=== PATIENT | female | born 1975 | race Caucasian/White ===

== ENCOUNTER 2021-05-12 16:53 | Emergency (ER) | payer OTHER, SELFPAY ==
--- NOTE | 2021-05-12 17:22 | ECG_ITS ---
Test Reason : palpitatons Blood Pressure : / mmHG Vent. Rate : 079 BPM Atrial Rate : 079 BPM P-R Int : 126 ms QRS Dur : 082 ms QT Int : 358 ms P-R-T Axes : 071 068 052 degrees QTc Int : 410 ms Normal sinus rhythm Normal ECG When compared with ECG of 18-JAN-2015 13:02, No significant change was found Referred By: Cinda Taylor Electronically Signed By:JAKE ALVAREZ
--- NOTE | 2021-05-12 17:23 | ED_ITS ---
HPI - Arrhythmia/Palpitations General Chief Complaint: General Medical Stated Complaint: needs a med refill Time Seen by Provider: 05/12/21 17:05 Source: patient Mode of arrival: ambulatory History of Present Illness HPI narrative: 46yo F with PMHx PVCs, tachycardia, presenting to the ED c/o being out of her Metoprolol 25mg PO daily x7 days after moving here from [place]. Reports feeling PVC's and palpitations this AM. Denies taking or missing any other medications. Denies CP, SOB, weakness, numbness/tingling, N/V MD complaint: palpitations and irregular heart beat Related Data Previous Rx's Medication Instructions Recorded metoprolol tartrate 25 mg tablet 25 mg PO DAILY #30 tab 05/12/21 Allergies Allergy/AdvReac Type Severity Reaction Status Date / Time No Known Allergies Allergy Unverified 11/14/19 18:59 Review of Systems Review of Systems: Constitutional: No Fever, No Chills, No Fatigue, No Malaise ENT/Mouth: No Ear Pain, No Nasal Congestion, No sore throat, No Rhinorrhea Eyes: No Eye Pain, No Swelling, No Redness, No Discharge Cardiovascular: No Chest Pain, No SOB, No Edema, + Palpitations Respiratory: No Cough, No Sputum, No Dyspnea Gastrointestinal: No Nausea, No Vomiting, No Diarrhea, No Constipation, No Abdominal pain Musculoskeletal: No joint pain, No Myalgias, No Joint Swelling Skin: No Skin Lesions, No rash Neuro: No Weakness, No Numbness, No Paresthesias, No Loss of Consciousness, No Dizziness, No Headache Yes all other systems are reviewed and are negative [facility] Past Medical History Attestation statement: The following information was validated with the patient. Social History Social History Advance Directives: No Advance Directives Information Provided: No Physical Exam Vital Signs: Vital Signs: Last Vital Signs Temp 98.1 F 05/12/21 18:05 Pulse 99 05/12/21 18:05 Resp 18 05/12/21 18:05 BP 142/79 H 05/12/21 18:05 Pulse Ox 100 05/12/21 18:05 BMI result Body Mass Index 28.5 Const: General: cooperative and healthy appearing Orientation/consciousness: patient oriented x3 Limitations: no limitations HENMT: Head: Yes normal to inspection Ears: hearing grossly normal bilaterally General nose exam: Normal external nose present Face and sinus: Yes normal facial exam Eyes: General: appearance normal, both eyes and all related structures EOM: EOMs intact bilaterally Neck: Neck: Yes normal visual inspection and Yes no meningeal signs Resp: Effort & Inspection: normal respiratory effort and no respiratory distress Auscultation: clear to auscultation bilaterally, no crackles, no rales, no rhonchi and no wheezes Cardio: Rate: regular rate Heart sounds: S1 normal heart sound present and S2 normal heart sound present GI: Inspection: Yes normal to inspection Skin: Rashes: no rashes Wounds: no wounds Neuro: General: patient oriented x3 and no meningeal signs Gait exam (Neuro): Normal gait present Extrem: General: Yes normal to inspection, Yes no pedal edema and Yes normal gait MDM - Arrhythmia/Palpitations MDM Narrative Medical decision making narrative: 46yo F with PMHx PVCs, tachycardia, presenting to the ED c/o being out of her Metoprolol 25mg PO daily x7 days after moving here from [place]. On exam VSS, NAD, well appearing, Lungs CTA. R/o arrhythmia. Low concern for ACS/PE EKG showing: NSR, no PVCs, rate of 79. OH interval 126. QRS 82. QTC 410 Differential Diagnosis Differential diagnosis: Likely palpitations Medical Records Attestation: I reviewed the patient's medical records. Lab Data Attestation: I reviewed the patient's lab results. Discharge Plan Discharge Clinical Impression: Medication refill Patient Disposition: Home, Self-Care Instructions: Medicine Refill (ED) Additional Instructions: take your medications as prescribed. Establish care with a primary care doctor. If you develop chest pain, palpitations, lightheadedness / dizziness or shortness of breath please return to the emergency department Prescriptions: New metoprolol tartrate 25 mg tablet 25 mg PO DAILY Qty: 30 0RF Referrals: Deon Crook MD, DO [Physician] - 2 days
[2021-05-12 18:05] VITALS: BP 142/79; PULSE 99; RESP 18; TEMP 36.7; O2SAT 100; BMI 28.5
[2021-05-12] MEDS: Metoprolol Tartrate 25 MG TABLET PO (18:49)
== END 2021-05-12 19:17 | disposition home or self-care (01) ==
PROVIDERS: Emergency Provider Emergency Medicine
DX: R00.0 Tachycardia, unspecified (principal); Z76.0 Encounter for issue of repeat prescription; Z79.899 Other long term (current) drug therapy
CPT/HCPCS: 93005; 99283

== ENCOUNTER 2021-08-07 07:48 | Emergency (ER) | payer OTHER, SELFPAY ==
--- NOTE | ~2021-08-07 | CT_ITS ---
EXAMINATION: CT ABDOMEN AND PELVIS WITHOUT CONTRAST CLINICAL INFORMATION: Right flank pain. COMPARISON: None TECHNIQUE: Multidetector volumetric imaging was performed from the superior aspect of the liver through the pubic symphysis. Sagittal and coronal reformatted images were obtained on the technologist's workstation. Lack of intravenous and oral contrast limits visceral evaluation. This CT examination was performed using dose optimization techniques as appropriate, variously including the following: *Automated exposure control *Adjustment of mA and/or kV according to patient size (this includes techniques or standardized protocols for targeted exams where dose is matched to indication/reason for exam; i.e. extremities or head) *Use of iterative reconstruction technique DLP: 630 mGy-cm FINDINGS: LUNG BASES: The visualized lung bases are unremarkable. LIVER, GALLBLADDER, AND BILIARY TREE: Unremarkable. PANCREAS: Unremarkable. SPLEEN: Unremarkable. ADRENAL GLANDS: Unremarkable. KIDNEYS AND URETERS: The kidneys are normal in size, shape, and attenuation. No hydronephrosis, hydroureter, or calculi seen. No perinephric stranding. BLADDER: Unremarkable. GASTROINTESTINAL TRACT: The stomach and small bowel unremarkable. The appendix was not confidently identified. No significant right lower quadrant/pericecal abnormality. The colon and rectum are unremarkable. ABDOMINAL WALL: No significant hernia is appreciated. LYMPH NODES: No lymphadenopathy. VASCULAR: Unremarkable. PELVIC VISCERA: Anteverted/anteflexed uterus mild prominence, but no overt focal abnormality. No adnexal abnormality. OSSEOUS STRUCTURES: Unremarkable. CT/CT abdomen pelvis wo con IMPRESSION: 1. No acute intra-abdominal/pelvic abnormality to explain the patient's pain. 2. Incidental mild prominence of the uterus without focal abnormality. If the patient is experiencing any abnormal bleeding or pelvic pain, transvaginal pelvic ultrasound is recommended. Fleischner guidelines were followed.
[2021-08-07 07:58] VITALS: BP 138/73; PULSE 77; RESP 18; TEMP 36.7; O2SAT 100; BMI 28.1
--- NOTE | 2021-08-07 08:20 | ED_ITS ---
HPI - Abdominal Pain General Chief Complaint: Back Pain/Injury Stated Complaint: back pain Time Seen by Provider: 08/07/21 08:11 Source: patient Mode of arrival: ambulatory Limitations: no limitations History of Present Illness HPI narrative: 46-year-old female came in for evaluation of right side abdominal/right flank pain. Pain started since last night, pain was described as dull aching pain mainly in the right side of the abdomen radiating to the right flank area, pain is intermittent started since last night, described dysuria and urinary frequency, no vaginal bleeding or discharge, pain is not food or drink related. Decline nausea, vomiting, or diarrhea, sexually active without risk of STDs. No fever, no chills. History of appendectomy and tubal ligation. Related Data Previous Rx's Medication Instructions Recorded metoprolol tartrate 25 mg tablet 25 mg PO DAILY #30 tabs 05/12/21 cyclobenzaprine 10 mg tablet 10 mg PO TID PRN muscle spasm #7 08/07/21 tabs Allergies Allergy/AdvReac Type Severity Reaction Status Date / Time No Known Allergies Allergy Unverified 11/14/19 18:59 Review of Systems Review of Systems All other systems are reviewed and are negative Constitutional: Reports as per HPI and Reports no additional constitutional complaints Eyes: Reports as per HPI and Reports no additional eye complaints Reports system reviewed and no additional complaints, except as documented Cardiovascular: Reports as per HPI and Reports no additional cardiovascular complaints Respiratory: Reports as per HPI and Reports no additional respiratory complaints Gastrointestinal: Reports as per HPI and Reports no additional gastrointestinal complaints Genitourinary: Reports no additional female genitourinary complaints Musculoskeletal: Reports no additional musculoskeletal complaints Skin/Breast: Reports system reviewed and no additional complaints, except as docu Psychiatric: Reports no additional psychiatric complaints Endocrine: Reports no additional endocrine complaints Hematologic/Lymphatic: Reports no additional hematologic/lymphatic complaints Allergic/Immunologic: Reports no additional allergic/immunologic complaints Reports system reviewed and no additional complaints, except as documented and Reports Abnormal speech present [facility] Social History Social History Advance Directives: No Advance Directives Information Provided: No Patient : No Physical Exam ED Vital Signs: Vital Signs - 24 hr 08/07/21 07:58 08/07/21 10:25 Temperature 98.0 F Pulse Rate 77 70 Respiratory Rate 18 16 Blood Pressure 138/73 138/65 Pulse Oximetry 100 100 Oxygen Delivery Method Room Air Room Air BMI result Body Mass Index 28.1 Vital signs have been reviewed as appeared to be correct. Blood pressure normal. Heart rate normal. Respiration rate normal. Temperature normal. Oxygen saturation normal. Appearance: Alert. Oriented X3. No acute distress. Head: Normal external exam. Normocephalic. Atraumatic. No Gracia signs noted. No raccoon eyes noted Eyes: PERRLA. EOMI. Conjunctiva and sclera normal. Eyelids normal. ENT: TM's Normal. Pharynx normal. Uvula midline. Moist mucous membranes. No trismus noted. No drooling noted. No muffled voice noted. Neck: Normal inspection. Neck supple. FROM. No adenopathy. Thyroid Normal. No meningeal signs. No neck mass noted. CVS: Normal heart rate and rhythm. Heart sound normal. No murmurs noted. Pulses normal throughout. Respiratory: No respiratory distress. Painless inspiration. Breath sounds normal. No wheezes/rales/rhonchi noted. Chest nontender. No accessory muscle usage noted or decreased air movement noted. Abdomen: Soft and nontender. Bowel sounds normal in all 4 quadrants. No distention noted. No organomegaly noted. No visible injury noted. Back: No CVA tenderness. Full range of motion noted. Skin: Skin warm and dry. Normal skin color. Normal skin turgor. No rashes/lesions/lacerations noted. Extremities: No lower extremity edema. Extremities exhibit normal range of motion. Extremities nontender. Neuro: Oriented X 3. Cranial nerve exam: II-XII are grossly intact No motor deficit. No sensory deficit. Reflexes normal. Course Course Course Narrative: Assessment and plan. 46 years old female came in with right flank abdominal pain, incidentally found to have mild lipase elevation patient declined drinking alcohol, normal LFTs CT abdomen pelvis showed normal gallbladder, liver and pancreas. Will instruct the patient to eat clear diet with drinking plenty of fluid and try to avoid greasy food. 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 MDM - Abdominal Pain Lab Data Attestation: I reviewed the patient's lab results. Result diagrams: 08/07/21 08:24 08/07/21 08:24 Labs: Lab Results 08/07/21 08/07/21 08/07/21 Range/Units 08:24 08:24 08:25 WBC 8.2 (4.8-10.8) X10*3/uL RBC 4.19 L (4.20-5.50) X10*6/uL Hgb 12.5 (12.0-16.0) g/dl Hct 38.2 (37.0-47.0) % MCV 91.2 (80.0-98.0) fL MCH 29.8 (27.0-33.0) pg MCHC 32.7 (31.0-35.0) g/dl RDW 14.1 (11.0-16.0) % Plt Count 193 (160-400) X10*3/uL MPV 11.6 (9.4-12.3) fL Immature Gran % (Auto) 0.2 (0.0-0.4) % Neut % (Auto) 76.6 H (45-73) % Lymph % (Auto) 14.5 L (20-40) % [place] % (Auto) 6.3 (2-11) % Eos % (Auto) 2.0 (0-4) % Baso % (Auto) 0.4 (0-2) % Lymph # (Auto) 1.2 (1.2-4.9) X10*3/uL [place] # (Auto) 0.5 (0.1-1.2) X10*3/uL Eos # (Auto) 0.2 (0.0-0.4) X10*3/uL Baso # (Auto) 0.0 (0.0-0.2) X10*3/uL Abs Immat Gran (auto) 0.02 (0.00-0.03) X10*3/uL Absolute Neuts (auto) 6.3 (2.0-8.3) x10*3/uL Absolute Nucleated RBC 0.000 (0.0-0.012) X10*3/uL Nucleated RBC % (auto) 0.0 (0.0-0.2) /100WBC Sodium 138 (135-145) mmol/L Potassium 3.9 (3.3-5.1) mmol/L Chloride 104 (96-108) mmol/L Carbon Dioxide 26 (22-29) mmol/L Anion Gap 12 (12-20) BUN 16 (9-16) mg/dL Creatinine 0.81 (0.5-1.4) mg/dL Estim Creat Clear Calc 100.6 Estimated GFR > 60 Random Glucose 97 (60-115) mg/dL Calcium 9.1 (8.4-10.2) mg/dL Total Bilirubin 0.4 (0.0-1.0) mg/dL Direct Bilirubin 0.2 (0.0-0.5) mg/dL AST 18 (5-31) U/L ALT 12 (0-31) U/L Alkaline Phosphatase 54 (39-117) U/L Total Protein 6.8 (6.5-8.0) g/dL Albumin 4.2 (3.5-5.0) g/dL Lipase 131 H (8-78) U/L Urine Color YELLOW Urine Appearance CLEAR Urine pH 6.0 (5.0-8.0) Ur Specific [place] 1.025 (1.005-1.025) Urine Protein NEG (NEG-TRACE) MG/DL Urine Glucose (UA) NEG (NEG) MG/DL Urine Ketones NEG (NEG) MG/DL Urine Blood NEG (NEG) Urine Nitrite NEG (NEG) Ur Leukocyte Esterase NEG (NEG) Urine Test (NEGATIVE) 08/07/21 Range/Units 08:25 WBC (4.8-10.8) X10*3/uL RBC (4.20-5.50) X10*6/uL Hgb (12.0-16.0) g/dl Hct (37.0-47.0) % MCV (80.0-98.0) fL MCH (27.0-33.0) pg MCHC (31.0-35.0) g/dl RDW (11.0-16.0) % Plt Count (160-400) X10*3/uL MPV (9.4-12.3) fL Immature Gran % (Auto) (0.0-0.4) % Neut % (Auto) (45-73) % Lymph % (Auto) (20-40) % [place] % (Auto) (2-11) % Eos % (Auto) (0-4) % Baso % (Auto) (0-2) % Lymph # (Auto) (1.2-4.9) X10*3/uL [place] # (Auto) (0.1-1.2) X10*3/uL Eos # (Auto) (0.0-0.4) X10*3/uL Baso # (Auto) (0.0-0.2) X10*3/uL Abs Immat Gran (auto) (0.00-0.03) X10*3/uL Absolute Neuts (auto) (2.0-8.3) x10*3/uL Absolute Nucleated RBC (0.0-0.012) X10*3/uL Nucleated RBC % (auto) (0.0-0.2) /100WBC Sodium (135-145) mmol/L Potassium (3.3-5.1) mmol/L Chloride (96-108) mmol/L Carbon Dioxide (22-29) mmol/L Anion Gap (12-20) BUN (9-16) mg/dL Creatinine (0.5-1.4) mg/dL Estim Creat Clear Calc Estimated GFR Random Glucose (60-115) mg/dL Calcium (8.4-10.2) mg/dL Total Bilirubin (0.0-1.0) mg/dL Direct Bilirubin (0.0-0.5) mg/dL AST (5-31) U/L ALT (0-31) U/L Alkaline Phosphatase (39-117) U/L Total Protein (6.5-8.0) g/dL Albumin (3.5-5.0) g/dL Lipase (8-78) U/L Urine Color Urine Appearance Urine pH (5.0-8.0) Ur Specific [place] (1.005-1.025) Urine Protein (NEG-TRACE) MG/DL Urine Glucose (UA) (NEG) MG/DL Urine Ketones (NEG) MG/DL Urine Blood (NEG) Urine Nitrite (NEG) Ur Leukocyte Esterase (NEG) Urine Test NEGATIVE (NEGATIVE) Imaging Data CT scan - abdomen: Attestation: I personally reviewed and interpreted this imaging study as follows: Radiologist's impression: 1. No acute intra-abdominal/pelvic abnormality to explain the patient's pain. 2. Incidental mild prominence of the uterus without focal abnormality. If the patient is experiencing any abnormal bleeding or pelvic pain, transvaginal pelvic ultrasound is recommended. ? Discharge Plan Discharge Clinical Impression: Right flank pain, Muscle strain, Pancreatitis Patient Disposition: Home, Self-Care Instructions: Pancreatitis (ED), Muscle Strain (ED) Prescriptions: New cyclobenzaprine 10 mg tablet 10 mg PO TID PRN (Reason: muscle spasm) Qty: 7 0RF No Action metoprolol tartrate 25 mg tablet 25 mg PO DAILY Qty: 30 0RF Referrals: Lukasz Chapin MD [Primary Care Provider] -
[2021-08-07] MEDS: 0.9 % Sodium Chloride 1,000 ML 999 ML IV (08:27)
[2021-08-07 08:33] LABS: MANUAL DIFF FLAG NO
[2021-08-07 08:36] LABS: Appearance Urine CLEAR; Color Urine YELLOW; Glucose Urine UA NEG (NEG); Leukocyte Esterase Urine NEG (NEG); Nitrite Urine NEG (NEG); Specific Gravity - Urine 1.025 (1.005-1.025); Urine Blood NEG (NEG); Urine Ketones NEG (NEG); Urine Protein NEG (NEG-TRACE)
[2021-08-07 08:37] LABS: Basophils Percent Auto 0.4 % (0-2); Eosinophils Absolute Auto 0.2 X10*3/uL (0.0-0.4); Hematocrit 38.2 % (37.0-47.0); Hemoglobin 12.5 g/dl (12.0-16.0); Imm Gran Abs Auto 0.02 X10*3/uL (0.00-0.03); Imm Gran Pct Auto 0.2 % (0.0-0.4); Lymphocytes Absolute Auto 1.2 X10*3/uL (1.2-4.9); Lymphocytes Percent Auto 14.5 % (20-40); Mean Corpuscular HGB Conc 32.7 g/dl (31.0-35.0); Mean Corpuscular Hemoglobin 29.8 pg (27.0-33.0); Mean Corpuscular Volume 91.2 fL (80.0-98.0); Mean Platelet Volume 11.6 fL (9.4-12.3); Monocytes Absolute Auto 0.5 X10*3/uL (0.1-1.2); Monocytes Percent Auto 6.3 % (2-11); Neutrophils Absolute Auto 6.3 x10*3/uL (2.0-8.3); Neutrophils Percent Auto 76.6 % (45-73); Platelet Count 193 X10*3/uL (160-400); Red Blood Count 4.19 X10*6/uL (4.20-5.50); Red Cell Distribution Width 14.1 % (11.0-16.0); White Blood Count 8.2 X10*3/uL (4.8-10.8)
[2021-08-07 08:39] LABS: UPreg QC Valid YES; Urine Pregnancy NEGATIVE (NEGATIVE)
[2021-08-07 08:48] LABS: Alanine Aminotransferase 12 U/L (0-31); Albumin Level 4.2 g/dL (3.5-5.0); Alkaline Phosphatase 54 U/L (39-117); Anion Gap 12 (12-20); Aspartate Amino Transferase 18 U/L (5-31); Bilirubin Direct 0.2 mg/dL (0.0-0.5); Bilirubin Total 0.4 mg/dL (0.0-1.0); Blood Urea Nitrogen 16 mg/dL (9-16); Calcium 9.1 mg/dL (8.4-10.2); Carbon Dioxide 26 mmol/L (22-29); Chloride 104 mmol/L (96-108); Creatinine Clr Calc Pharmacy 100.6; Estimated Glomerular Filt Rate > 60; Glucose Random 97 mg/dL (60-115); Lipase 131 U/L (8-78); Potassium 3.9 mmol/L (3.3-5.1); Sodium 138 mmol/L (135-145); Total Protein 6.8 g/dL (6.5-8.0)
[2021-08-07 10:25] VITALS: BP 138/65; PULSE 70; RESP 16; O2SAT 100
== END 2021-08-07 11:48 | disposition home or self-care (01) ==
PROVIDERS: Emergency Provider Emergency Medicine; PCP Family Medicine
DX: K85.90 Acute pancreatitis without necrosis or infection, unspecified (principal); T14.8XXA Other injury of unspecified body region, initial encounter; Z90.49 Acquired absence of other specified parts of digestive tract; X50.9XXA Other and unspecified overexertion or strenuous movements or postures, initial encounter; Y93.9 Activity, unspecified; Y92.89 Other specified places as the place of occurrence of the external cause; Y99.0 Civilian activity done for income or pay
CPT/HCPCS: 36415; 74176; 80048; 80076; 81003; 81025; 83690; 85025; 96360; 99284

== ENCOUNTER 2023-03-24 16:26 | Emergency (ER) | payer OTHER, SELFPAY ==
--- NOTE | 2023-03-24 16:32 | ED.FEMALEGU ---
HPI - Female Genitourinary General Chief complaint: General Medical Stated complaint: possible UTI, feels like she has high BP Time Seen by Provider: 03/24/23 16:55 Source: patient, RN notes reviewed and old records reviewed Mode of arrival: ambulatory History of Present Illness HPI Narrative: 48-year-old female with a past medical history of hypertension presenting to the ED complaining of urinary frequency, suprapubic discomfort, urinary odor x yesterday. Also reports ran out of her Metoprolol yesterday, and PCP appointment is not until May. Denies headache, chest pain, lightheadedness/dizziness, dysuria, vaginal bleeding/discharge at present Related Data Previous Rx's Medication Instructions Recorded metoprolol tartrate 25 mg tablet 25 mg PO DAILY #30 tabs 05/12/21 cyclobenzaprine 10 mg tablet 10 mg PO TID PRN muscle spasm #7 08/07/21 tabs metoprolol succinate 25 mg 25 mg PO DAILY #30 tabs 03/24/23 tablet,extended release 24 hr phenazopyridine 200 mg tablet 200 mg PO TID PRN pain 6 doses #6 03/24/23 (Pyridium) tabs Allergies Allergy/AdvReac Type Severity Reaction Status Date / Time No Known Allergies Allergy Unverified 11/14/19 18:59 Review of Systems Review of Systems: Constitutional: No Fever, No Chills ENT/Mouth: No Ear Pain, No Nasal Congestion, No Sinus Pain, No sore throat, No Rhinorrhea, No Swallowing Difficulty Cardiovascular: No Chest Pain, No SOB Respiratory: No Cough, No Sputum, No Wheezing Gastrointestinal: No Nausea, No Vomiting, No Diarrhea, No Constipation, + Abdominal pain Genitourinary: +odorous urine, No Dysuria,+ Urinary Frequency, No Hematuria, No Urinary Incontinence/retention, +Urgency, No Flank Pain Musculoskeletal: No joint pain, No Myalgias, No Joint Swelling Skin: No Skin Lesions, No rash Neuro: No Weakness, No Numbness, No Paresthesias Yes all other systems are reviewed and are negative Constitutional: Constitutional: Reports as per HPI Neurologic: Denies Abnormal speech present [facility] Past Medical History Attestation statement: The following information was validated with the patient. Source: old records reviewed Social History Social History Advance Directives: No Advance Directives Information Provided: No Physical Exam Vital Signs: Vital Signs: Last Vital Signs Temp 98 F 03/24/23 16:41 Pulse 92 03/24/23 16:41 Resp 16 03/24/23 16:41 BP 151/79 H 03/24/23 16:41 Pulse Ox 98 03/24/23 16:41 BMI result Body Mass Index 29.3 Const: General: cooperative, healthy appearing and no acute distress Orientation/consciousness: patient oriented x3 Limitations: no limitations HEENT: Head: Yes normal to inspection and Yes atraumatic Ears: hearing grossly normal bilaterally General nose exam: Normal external nose present Face and sinus: Yes normal facial exam Eyes: General: appearance normal, both eyes and all related structures EOM: EOMs intact bilaterally Neck: Neck: Yes normal visual inspection and Yes no meningeal signs Resp: Effort & Inspection: normal respiratory effort and no respiratory distress Cardio: Rate: regular rate GI: Inspection: Yes normal to inspection Palpation (GI): Soft to palpation and nontender : General: Yes no CVA tenderness Back/Spine/Pelvis: Back: no CVA tenderness Skin: Rashes: no rashes Wounds: no wounds Neuro: General: patient oriented x3, gait normal, tone normal, moves all extremities and no meningeal signs Cranial nerves: Yes CN's II-XII intact bilaterally Cognition (Neuro): normal cognition Speech: No Abnormal speech present Gait exam (Neuro): Normal gait present Extrem: General: Yes normal to inspection Course Course Course Narrative: This is an RME: Additional HPI, ROS, PE not included below will be deferred to primary provider. Patient is a 48 year old female who presents for concerns for urinary infection, suprapubic pain, urinary frequency, and foul smelling urine. Also she states she reports that she ran out of her metoprolol yesterday, she does not have an appt with PCP here until May, she was previously purchasing it in [place], feels like her blood pressure is high today. Plan: U/A, hcg -UA not infected. negative Results discussed with patient including worrisome signs and symptoms and strict return precautions, and when to return to the emergency department. They verbalized understanding and feel safe for discharge at this time. Medical Decision Making Medical Decision Making MDM Narrative: 48-year-old female with a past medical history of hypertension presenting to the ED complaining of urinary frequency, suprapubic discomfort, urinary odor x yesterday. Also reports ran out of her Metoprolol yesterday. Mildly hypertensive, NAD, nontoxic appearing, abdomen soft/nontender, no CVAT. Concern for UTI. Low suspicion for renal stones/pyelo, ovarian torsion, STI, TOA. Low suspicion for hypertensive urgency/emergency Plan: UA, Please refer to course for remaining clinical decision making, interpretation of labs/imaging results, and discussions with consultants and/or family members. Differential Diagnosis Differential Diagnoses: The differential diagnosis associated with the presentation includes As above Lab Data MDM Lab Attestation statement: I reviewed the patient's lab results. Labs: Lab Results 03/24/23 Range/Units 16:47 Urine Color Yellow Urine Appearance Clear Urine pH 5.5 (5.0-9.0) Ur Specific [place] 1.020 (1.005-1.025) Urine Protein Negative (Neg-Trace) mg/dL Urine Glucose (UA) Negative (Negative) mg/dL Urine Ketones Negative (Negative) mg/dL Urine Blood Negative (Negative) Urine Nitrite Negative (Negative) Ur Leukocyte Esterase Trace H (Negative) Urine RBC 0-2 (0-2) /HPF Urine WBC 0-5 (0-5) /HPF Ur Squamous Epith Cells 3-5 (0-2) /HPF Urine Bacteria 4+ (None Seen) Hyaline Casts 0-2 (0-2) /LPF Urine Test NEGATIVE (NEGATIVE) External Record Review External record reviewed: Inpatient record, Office record, Outpatient record, Prior outpatient labs, Prior outpatient radiology, Primary care record and Outside ED record Tests considered The following testing was considered but not selected: As above Prescription Management I considered prescription management with: Pain Medication and Antibiotic Chronic Conditions Patient?s care impacted by: Hypertension Discharge Plan Discharge Clinical Impression: Foul smelling urine, HTN (hypertension) Patient Disposition: Home, Self-Care Instructions: Hypertension (ED) Additional Instructions: Pyridium will help with urinary discomfort. This will turn your urine orange, this is normal Please continue to take your prescribed antihypertensive medication If her symptoms persist or worsen, pain becomes unbearable, you develop vaginal bleeding or discharge, headache, chest pain or shortness of breath return to the ED Please follow-up with your doctor Prescriptions: New metoprolol succinate 25 mg tablet extended release 24 hr 25 mg PO DAILY Qty: 30 0RF phenazopyridine [Pyridium] 200 mg tablet 200 mg PO TID PRN (Reason: pain) Qty: 6 0RF No Action cyclobenzaprine 10 mg tablet 10 mg PO TID PRN (Reason: muscle spasm) Qty: 7 0RF metoprolol tartrate 25 mg tablet 25 mg PO DAILY Qty: 30 0RF Referrals: Lukasz Chapin MD [Primary Care Provider] - 3 days Interventions: ED Discharge Assessment Last Done: 03/24/23 18:26 Discharge Date/Time: 03/24/23 18:27
[2023-03-24 16:41] VITALS: BP 151/79; PULSE 92; RESP 16; TEMP 36.6; O2SAT 98; BMI 29.3
[2023-03-24 16:56] LABS: Appearance Urine Clear; Color Urine Yellow; Glucose Urine UA Negative (Negative); Leukocyte Esterase Urine Trace (Negative); Nitrite Urine Negative (Negative); PH 5.5 (5.0-9.0); UMIC TRIGGER UACC YES; Urine Blood Negative (Negative); Urine Ketones Negative (Negative); Urine Protein Negative (Neg-Trace)
[2023-03-24 17:02] LABS: UPreg QC Valid YES; Urine Pregnancy NEGATIVE (NEGATIVE)
[2023-03-24 17:03] LABS: Bacteria Urine 4+ (None Seen); Hyaline Casts Urine 0-2 /LPF (0-2); RBC Urine 0-2 /HPF (0-2); WBC Urine 0-5 /HPF (0-5)
== END 2023-03-24 18:27 | disposition home or self-care (01) ==
PROVIDERS: Nurse Practitioner Family; Emergency Provider Emergency Medicine Emergency Medical Services; PCP Family Medicine
DX: R82.998 Other abnormal findings in urine (principal); I10 Essential (primary) hypertension
CPT/HCPCS: 81001; 81003; 81025; 99282; 99283; 99284

== ENCOUNTER 2023-04-16 11:37 | Emergency (ER) | payer OTHER, SELFPAY ==
--- NOTE | 2023-04-16 12:14 | ED.GENADULT ---
HPI - General Adult General Chief complaint: General Medical Stated complaint: Fever, headache Time Seen by Provider: 04/16/23 12:51 Source: patient Mode of arrival: ambulatory Limitations: no limitations History of Present Illness HPI narrative: 48 yo female healthy here with 4 days of sneezing, cough, congestion, headache, subjective fevers and concern for rash on her abdomen. No chest pain, shortness of breath, neck pain/stiffness, vomiting,diarrhea, abdominal pain, urinary symptoms. No sick contact. Traveled from [place] on 03/27. Did home covid test which was negative. Related Data Previous Rx's Medication Instructions Recorded metoprolol tartrate 25 mg tablet 25 mg PO DAILY #30 tabs 05/12/21 cyclobenzaprine 10 mg tablet 10 mg PO TID PRN muscle spasm #7 08/07/21 tabs metoprolol succinate 25 mg 25 mg PO DAILY #30 tabs 03/24/23 tablet,extended release 24 hr phenazopyridine 200 mg tablet 200 mg PO TID PRN pain 6 doses #6 03/24/23 (Pyridium) tabs Allergies Allergy/AdvReac Type Severity Reaction Status Date / Time No Known Allergies Allergy Verified 04/16/23 12:15 Review of Systems Review of Systems: Yes all other systems are reviewed and are negative Constitutional: Constitutional: Reports no additional constitutional complaints, Reports body ache(s), Reports chills, Reports fever(s), Reports headache(s) and Denies weakness Eyes: Eyes: Reports no additional eye complaints and Denies change in vision ENT: Reports system reviewed and no additional complaints, except as documented, Denies dizziness, Reports headache(s), Reports nasal congestion, Denies nasal discharge and Denies neck pain Comments: +sneezing Cardiovascular: Cardiovascular: Reports no additional cardiovascular complaints, Denies chest pain, Denies leg edema and Denies dyspnea Respiratory: Respiratory: Reports no additional respiratory complaints, Reports cough and Denies dyspnea Gastrointestinal: Gastrointestinal: Reports no additional gastrointestinal complaints, Denies abdominal pain, Denies diarrhea, Denies nausea and Denies vomiting Genitourinary: Genitourinary: Reports no additional female genitourinary complaints and Denies urinary incontinence Musculoskeletal: Musculoskeletal: Reports no additional musculoskeletal complaints, Denies back pain, Denies arthralgias, Denies joint swelling, Denies neck pain, Denies numbness and Denies tingling Integumentary/Breasts: Skin/Breast: Reports system reviewed and no additional complaints, except as docu and Reports rash Neurologic: Reports system reviewed and no additional complaints, except as documented, Denies Abnormal speech present, Denies dizziness, Reports headache(s), Denies numbness, Denies tingling and Denies weakness PMFSH Past Medical History Attestation statement: The following information was validated with the patient. Source: old records reviewed and nursing notes reviewed Social History Social History Smoked in Last 30 Days: No Use of substances other than those prescribed or required for medical reasons: No Advance Directives: No Advance Directives Information Provided: Yes Patient : No Physical Exam ED Vital Signs: Vital Signs - 24 hr 04/16/23 12:15 Temperature 98.0 F Pulse Rate 85 Respiratory Rate 14 Blood Pressure 134/79 Pulse Oximetry 98 Oxygen Delivery Method Room Air BMI result Body Mass Index 29.6 Const General: cooperative, healthy appearing, comfortable and no acute distress Orientation/consciousness: patient oriented x3 Limitations: no limitations HENMT Head: Yes normal to inspection Ears: hearing grossly normal bilaterally and TM's normal bilaterally General nose exam: Normal external nose present Face and sinus: Yes normal facial exam Mouth: Normal oral and palatal mucosa present Throat: Yes posterior oropharynx normal, Yes tonsils normal and Yes uvula midline Eyes General: appearance normal, both eyes and all related structures Pupils: Equal, round and reactive pupils present Neck Neck: Yes normal visual inspection, Yes full ROM, Yes no lymphadenopathy and Yes no meningeal signs Chest Chest palpation & inspection: normal inspection of the chest Resp Effort & Inspection: normal respiratory effort Auscultation: clear to auscultation bilaterally Cardio Rate: regular rate Rhythm: regular rhythm Peripheral pulses: Peripheral pulses 2+ throughout GI Inspection: Yes normal to inspection Palpation (GI): Soft to palpation and nontender Auscultation: normal bowel sounds Back/Spine/Pelvis Thoracic/Lumbar Spine: thoracic and lumbar spine normal to inspection Skin General skin exam: no rashes or lesions noted Full body images: 1. single scabbed lesion noted 2. single scabbed lesion noted 3. 2 scabbed lesions noted Neuro General: patient oriented x3, no meningeal signs, no focal motor deficits and normal sensation to monofilament Cranial nerves: Yes Equal, round and reactive pupils present Cognition (Neuro): normal cognition Speech: No Abnormal speech present Gait exam (Neuro): Normal gait present Motor exam (neuro): 5/5 motor strength present throughout Extrem General: Yes normal to inspection, Yes no pedal edema and Yes no calf tenderness Course Course Course Narrative: RME:?48 yo female here for eval of sneezing, subjective fevers, headache, cough x4 days. tested negative for covid at home. returned from [place] 2 wks ago. no known sick contacts. vaccinations UTD. viral swabs, labs ordered. Full HPI, ROS and PE to be performed by the primary ED provider. Reevaluation(s) Reevaluation #1: labs are unremarkable. Viral testing is negative. Likely viral syndrome. Patient is well-appearing, nontoxic, afebrile. Reviewed supportive care at home. Reviewed worrisome signs and symptoms of when to return to the emergency room. Comfortable plan for discharge home. Medical Decision Making Medical Decision Making [facility] Narrative: 48 yo female healthy here with 4 days of sneezing, cough, congestion, headache, subjective fevers and concern for rash on her abdomen. No chest pain, shortness of breath, neck pain/stiffness, vomiting,diarrhea, abdominal pain, urinary symptoms. No sick contact. Traveled from [place] on 03/27. Did home covid test which was negative. There are approximately four scabbed lesions noted over the trunk Otherwise exam is benign. VSS Will send viral testing, obtain labs Differential Diagnosis Differential Diagnoses: The differential diagnosis associated with the presentation includes viral syndrome, influenza Low suspician for strep, RPA, BUSINESS ANALYTICS ANALYST, PNA, meningitis/encephalitis, DRESS syndrome, SJS, TEN, UTI Admission/Observation Consideration of admission/observation: Escalation of care including admission/observation considered Lab Data [facility] Lab Attestation statement: I reviewed the patient's lab results. 04/16/23 12:27 04/16/23 12:27 Labs: Lab Results 04/16/23 Range/Units 12:27 WBC 7.4 (4.8-10.8) X10*3/uL RBC 4.35 (4.20-5.50) X10*6/uL Hgb 12.8 (12.0-16.0) g/dl Hct 38.6 (37.0-47.0) % MCV 88.7 (80.0-98.0) fL MCH 29.4 (27.0-33.0) pg MCHC 33.2 (31.0-35.0) g/dl RDW 14.5 (11.0-16.0) % Plt Count 214 (160-400) X10*3/uL MPV 11.5 (9.4-12.3) fL Immature Gran % (Auto) 0.1 (0.0-0.4) % Neut % (Auto) 75.9 H (45-73) % Lymph % (Auto) 12.0 L (20-40) % Union % (Auto) 8.1 (2-11) % Eos % (Auto) 3.4 (0-4) % Baso % (Auto) 0.5 (0-2) % Lymph # (Auto) 0.9 L (1.2-4.9) X10*3/uL Union # (Auto) 0.6 (0.1-1.2) X10*3/uL Eos # (Auto) 0.3 (0.0-0.4) X10*3/uL Baso # (Auto) 0.0 (0.0-0.2) X10*3/uL Abs Immat Gran (auto) 0.01 (0.00-0.03) X10*3/uL Absolute Neuts (auto) 5.6 (2.0-8.3) x10*3/uL Absolute Nucleated RBC 0.000 (0.0-0.012) X10*3/uL Nucleated RBC % (auto) 0.0 (0.0-0.2) /100WBC Sodium 139 (135-145) mmol/L Potassium 4.0 (3.3-5.1) mmol/L Chloride 106 (96-108) mmol/L Carbon Dioxide 26 (22-29) mmol/L Anion Gap 11 L (12-20) BUN 13 (9-16) mg/dL Creatinine 0.84 (0.5-1.4) mg/dL Estim Creat Clear Calc 97.3 Estimated GFR > 60 Random Glucose 91 (60-115) mg/dL Calcium 9.2 (8.4-10.2) mg/dL Influenza Type A (PCR) NEGATIVE (Negative) Influenza Type B (PCR) NEGATIVE (Negative) RSV RNA Qual (PCR) NEGATIVE (Negative) SARS-CoV-2 RNA (RT-PCR) NEGATIVE (Negative) Tests considered The following testing was considered but not selected: No hypoxia or tachypnea to suggest need for chest x-ray Prescription Management I considered prescription management with: Antibiotic Discharge Plan Discharge Clinical Impression: Acute viral syndrome Patient Disposition: Home, Self-Care Instructions: Viral Syndrome (ED) Additional Instructions: your blood work is normal. Your testing for COVID, flu, RSV are negative Take Motrin or Tylenol for any pain or fever Increase fluids, rest Return for any worsening symptoms Prescriptions: No Action cyclobenzaprine 10 mg tablet 10 mg PO TID PRN (Reason: muscle spasm) Qty: 7 0RF metoprolol tartrate 25 mg tablet 25 mg PO DAILY Qty: 30 0RF metoprolol succinate 25 mg tablet extended release 24 hr 25 mg PO DAILY Qty: 30 0RF phenazopyridine [Pyridium] 200 mg tablet 200 mg PO TID PRN (Reason: pain) Qty: 6 0RF Referrals: Lukasz Chapin MD [Primary Care Provider] - 1 week Stand Alone Forms: Work/School Release
[2023-04-16 12:15] VITALS: BP 134/79; PULSE 85; RESP 14; TEMP 36.7; O2SAT 98; BMI 29.6
[2023-04-16 12:33] LABS: MANUAL DIFF FLAG NO
[2023-04-16 12:34] LABS: Basophils Percent Auto 0.5 % (0-2); Eosinophils Absolute Auto 0.3 X10*3/uL (0.0-0.4); Eosinophils Percent Auto 3.4 % (0-4); Hematocrit 38.6 % (37.0-47.0); Hemoglobin 12.8 g/dl (12.0-16.0); Imm Gran Abs Auto 0.01 X10*3/uL (0.00-0.03); Imm Gran Pct Auto 0.1 % (0.0-0.4); Lymphocytes Absolute Auto 0.9 X10*3/uL (1.2-4.9); Mean Corpuscular HGB Conc 33.2 g/dl (31.0-35.0); Mean Corpuscular Hemoglobin 29.4 pg (27.0-33.0); Mean Corpuscular Volume 88.7 fL (80.0-98.0); Mean Platelet Volume 11.5 fL (9.4-12.3); Monocytes Absolute Auto 0.6 X10*3/uL (0.1-1.2); Monocytes Percent Auto 8.1 % (2-11); Neutrophils Absolute Auto 5.6 x10*3/uL (2.0-8.3); Neutrophils Percent Auto 75.9 % (45-73); Platelet Count 214 X10*3/uL (160-400); Red Blood Count 4.35 X10*6/uL (4.20-5.50); Red Cell Distribution Width 14.5 % (11.0-16.0); White Blood Count 7.4 X10*3/uL (4.8-10.8)
[2023-04-16 12:46] LABS: Anion Gap 11 (12-20); Blood Urea Nitrogen 13 mg/dL (9-16); Calcium 9.2 mg/dL (8.4-10.2); Carbon Dioxide 26 mmol/L (22-29); Chloride 106 mmol/L (96-108); Creatinine Clr Calc Pharmacy 97.3; Estimated Glomerular Filt Rate > 60; Glucose Random 91 mg/dL (60-115); Sodium 139 mmol/L (135-145)
[2023-04-16 13:11] LABS: Influenza A PCR NEGATIVE (Negative); Influenza B PCR NEGATIVE (Negative); Resp Syncy Virus RNA Qual PCR NEGATIVE (Negative); SARS COV2 PCR INHOUSE NEGATIVE (Negative)
== END 2023-04-16 13:52 | disposition home or self-care (01) ==
PROVIDERS: Physician Assistant Medical; Emergency Provider Emergency Medicine; PCP Family Medicine
DX: B34.9 Viral infection, unspecified (principal); R51.9 Headache, unspecified; R50.9 Fever, unspecified; R21 Rash and other nonspecific skin eruption; Z20.822 Contact with and (suspected) exposure to COVID-19; Z20.828 Contact with and (suspected) exposure to other viral communicable diseases
CPT/HCPCS: 0241U; 36415; 80048; 85025; 99283

== ENCOUNTER 2024-01-13 11:27 | Emergency (ER) | payer OTHER, SELFPAY ==
[2024-01-13 11:51] VITALS: BP 136/67; PULSE 80; RESP 16; TEMP 36.6; O2SAT 98; BMI 30.8
--- NOTE | 2024-01-13 11:51 | ED_ITS ---
HPI - General Adult General Chief complaint: General Medical Stated complaint: med refill Time Seen by Provider: 01/13/24 12:02 Source: patient and RN notes reviewed Mode of arrival: ambulatory Limitations: no limitations History of Present Illness ED Provider: Liz Barreto PA-C HPI narrative: This is a 48-year-old female, with a history of hypertension, who presents emergency department for medication refill. Patient states that she ran out of her metoprolol 25 mg extended release this morning. She called her doctor yesterday as she realized she only had 1 more dose left however the doctor will not fill this prescription until she was seen in person. Last dose was yesterday. She states that she occasionally visits [place], and has been buying [id number] metoprolol in [place]. Her last medication refill through a pharmacy in the [facility] was in March. She denies any current complaints. She denies any chest pain, shortness for breath, palpitations. She is otherwise feeling well. No other complaints or concerns at this time. MD complaint: Med refill Related Data Previous Rx's ?Medication ?Instructions ?Recorded metoprolol tartrate 25 mg tablet 25 mg PO DAILY #30 tabs 05/12/21 cyclobenzaprine 10 mg tablet 10 mg PO TID PRN muscle spasm #7 08/07/21 tabs metoprolol succinate 25 mg 25 mg PO DAILY #30 tabs 03/24/23 tablet,extended release 24 hr phenazopyridine 200 mg tablet 200 mg PO TID PRN pain 6 doses #6 03/24/23 (Pyridium) tabs metoprolol succinate 25 mg 25 mg PO DAILY #30 tabs 01/13/24 tablet,extended release 24 hr Allergies Allergy/AdvReac Type Severity Reaction Status Date / Time No Known Allergies Allergy Verified 01/13/24 11:54 Review of Systems Review of Systems: Yes all other systems are reviewed and are negative PMFSH Social History Social History Advance Directives: No Advance Directives Information Provided: Yes Physical Exam ED Vital Signs: Vital Signs - 24 hr 01/13/24 11:51 01/13/24 13:00 Temperature 97.8 F 97.8 F Pulse Rate 80 80 Respiratory Rate 16 16 Blood Pressure 136/67 136/67 Pulse Oximetry 98 98 Oxygen Delivery Method Room Air Room Air BMI result Body Mass Index 30.8 Const Other: General: Awake, alert, and oriented X3. No acute distress. HEENT: Normal inspection CVS: Normal heart rate and rhythm. Pulses normal. Respiratory: No respiratory distress Skin: Warm, dry, no rashes noted to exposed skin. Normal skin color. Normal skin turgor. Extremities: Normal to inspection Neuro: Oriented X 3. No motor deficit. No sensory deficit. Medical Decision Making Medical Decision Making [facility] Narrative: This is a 48-year-old female, with a history of hypertension on metoprolol 25 mg once a day, who presents emergency department for medication refill. She states that she ran out of her medication this morning. Last dose was yesterday. She called her primary care office yesterday however they refused to fill this prescription until she follows up and person. He has been buying [id number] metoprolol and [place] over the last several months. I called over to her pharmacy, [facility] in [place], they confirmed that her last medication refill was in March. I advised patient that we will fill this medication, and stressed the importance of calling her primary care physician on Monday to follow-up as we can not manage her blood pressure through the emergenc y room. She understands and agrees with plan. Patient given strict return precautions. She has no current complaints. No other complaints or concerns at this time. Differential Diagnosis Differential Diagnoses: The differential diagnosis associated with the presentation includes Med refill, hypertension, wellness check, blood pressure check Discharge Plan Discharge Clinical Impression: Medicine refill Patient Disposition: Home, Self-Care Instructions: Medicine Refill (ED) Additional Instructions: You were seen in the emergency department for medication refill. It is very important that you follow-up with your primary care physician regarding this visit, as they need to monitor your blood pressure to ensure that this medication is the appropriate medication to manage this. Call on Monday to make an appointment. Take medication as prescribed. If any new or worsening symptoms occur including but not limited to chest pain, palpitations, please seek emergent care. Prescriptions: New metoprolol succinate 25 mg tablet extended release 24 hr 25 mg PO DAILY Qty: 30 0RF No Action cyclobenzaprine 10 mg tablet 10 mg PO TID PRN (Reason: muscle spasm) Qty: 7 0RF metoprolol tartrate 25 mg tablet 25 mg PO DAILY Qty: 30 0RF metoprolol succinate 25 mg tablet extended release 24 hr 25 mg PO DAILY Qty: 30 0RF phenazopyridine [Pyridium] 200 mg tablet 200 mg PO TID PRN (Reason: pain) Qty: 6 0RF Interventions: ED Discharge Assessment Last Done: 01/13/24 13:00 Discharge Date/Time: 01/13/24 13:00 Print Language: Luxembourger
[2024-01-13 13:00] VITALS: BP 136/67; PULSE 80; RESP 16; TEMP 36.6; O2SAT 98
== END 2024-01-13 13:00 | disposition home or self-care (01) ==
PROVIDERS: Emergency Provider Emergency Medicine; PCP Family Medicine
DX: Z76.0 Encounter for issue of repeat prescription (principal); I10 Essential (primary) hypertension
CPT/HCPCS: 99282

== ENCOUNTER 2024-02-13 10:23 | Emergency (ER) | payer OTHER, SELFPAY ==
--- NOTE | 2024-02-13 10:37 | ECG_ITS ---
Test Reason : palpatation Blood Pressure : / mmHG Vent. Rate : 069 BPM Atrial Rate : 069 BPM P-R Int : 146 ms QRS Dur : 082 ms QT Int : 376 ms P-R-T Axes : 061 045 048 degrees QTc Int : 402 ms Normal sinus rhythm Low voltage QRS Borderline ECG When compared with ECG of 12-MAY-2021 18:59, No significant change was found Referred By: Generic ED Physician Electronically Signed By:JAKE ALVAREZ
[2024-02-13 10:53] VITALS: BP 139/71; PULSE 74; RESP 16; TEMP 2.4; TEMP 36.4; O2SAT 98; BMI 29.6
--- NOTE | 2024-02-13 11:00 | ED_ITS ---
HPI - General Adult General Chief complaint: Arrhythmia/Palpitations Stated complaint: heart palpatations Time Seen by Provider: 02/13/24 18:16 Related Data Previous Rx's ?Medication ?Instructions ?Recorded metoprolol tartrate 25 mg tablet 25 mg PO DAILY #30 tabs 05/12/21 cyclobenzaprine 10 mg tablet 10 mg PO TID PRN muscle spasm #7 08/07/21 tabs metoprolol succinate 25 mg 25 mg PO DAILY #30 tabs 03/24/23 tablet,extended release 24 hr phenazopyridine 200 mg tablet 200 mg PO TID PRN pain 6 doses #6 03/24/23 (Pyridium) tabs metoprolol succinate 25 mg 25 mg PO DAILY #30 tabs 01/13/24 tablet,extended release 24 hr Allergies Allergy/AdvReac Type Severity Reaction Status Date / Time No Known Allergies Allergy Verified 02/13/24 10:58 [facility] Social History Social History Smoked in Last 30 Days: No Use of substances other than those prescribed or required for medical reasons: No Advance Directives: No Do you have a plan to hurt others: No Plan Patient : No Physical Exam ED Vital Signs: Vital Signs - 24 hr 02/13/24 10:53 02/13/24 18:39 02/13/24 19:05 Temperature 36.4 F L 98.4 F 98.4 F Pulse Rate 74 75 75 Respiratory Rate 16 20 20 Blood Pressure 139/71 135/71 135/71 Pulse Oximetry 98 98 98 Oxygen Delivery Method Room Air Room Air Room Air BMI result Body Mass Index 29.6 Course Course Course Narrative: RME, this is a rapid medical exam performed by Klaus Palafox please refer to primary provider for complete H&P- 48-year-old female presents for evaluation of palpitations. She felt as though she had ?PVCs. ? She takes metoprolol 25 mg daily and her last dose was yesterday. Her primary doctor already called in a refill but the patient is concerned about heart palpitations. EKG performed, plan for labs including TSH Medical Decision Making Lab Data 02/13/24 11:14 02/13/24 11:14 Labs: Lab Results 02/13/24 Range/Units 11:14 WBC 5.3 (4.8-10.8) X10*3/uL RBC 4.09 L (4.20-5.50) X10*6/uL Hgb 12.0 (12.0-16.0) g/dl Hct 36.1 L (37.0-47.0) % MCV 88.3 (80.0-98.0) fL MCH 29.3 (27.0-33.0) pg MCHC 33.2 (31.0-35.0) g/dl RDW 14.6 (11.0-16.0) % Plt Count 192 (160-400) X10*3/uL MPV 11.2 (9.4-12.3) fL Immature Gran % (Auto) 0.4 (0.0-0.4) % Neut % (Auto) 67.0 (45-73) % Lymph % (Auto) 20.6 (20-40) % Cassia % (Auto) 9.3 (2-11) % Eos % (Auto) 2.3 (0-4) % Baso % (Auto) 0.4 (0-2) % Lymph # (Auto) 1.1 L (1.2-4.9) X10*3/uL Cassia # (Auto) 0.5 (0.1-1.2) X10*3/uL Eos # (Auto) 0.1 (0.0-0.4) X10*3/uL Baso # (Auto) 0.0 (0.0-0.2) X10*3/uL Abs Immat Gran (auto) 0.02 (0.00-0.03) X10*3/uL Absolute Neuts (auto) 3.5 (2.0-8.3) x10*3/uL Absolute Nucleated RBC 0.000 (0.0-0.012) X10*3/uL Nucleated RBC % (auto) 0.0 (0.0-0.2) /100WBC PT 13.1 H (10.9-12.4) SEC INR 1.1 (0.9-1.1) Sodium 140 (135-145) mmol/L Potassium 4.2 (3.3-5.1) mmol/L Chloride 109 H (96-108) mmol/L Carbon Dioxide 26 (22-29) mmol/L Anion Gap 9 L (12-20) BUN 15 (9-16) mg/dL Creatinine 0.74 (0.5-1.4) mg/dL Estim Creat Clear Calc 110.5 Estimated GFR > 60 Random Glucose 98 (60-115) mg/dL Calcium 8.8 (8.4-10.2) mg/dL Magnesium 1.9 (1.6-2.6) mg/dL Total Bilirubin 0.2 (0.0-1.0) mg/dL AST 24 (5-31) U/L ALT 19 (0-31) U/L Alkaline Phosphatase 57 (39-117) U/L Total Protein 7.0 (6.5-8.0) g/dL Albumin 4.1 (3.5-5.0) g/dL Lipase 39 (8-78) U/L TSH 1.55 (0.32-4.0) uIU/mL Discharge Plan Discharge Clinical Impression: Supraventricular tachycardia Patient Disposition: Home, Self-Care Instructions: Supraventricular Tachycardia (ED) Prescriptions: No Action cyclobenzaprine 10 mg tablet 10 mg PO TID PRN (Reason: muscle spasm) Qty: 7 0RF metoprolol tartrate 25 mg tablet 25 mg PO DAILY Qty: 30 0RF metoprolol succinate 25 mg tablet extended release 24 hr 25 mg PO DAILY Qty: 30 0RF phenazopyridine [Pyridium] 200 mg tablet 200 mg PO TID PRN (Reason: pain) Qty: 6 0RF metoprolol succinate 25 mg tablet extended release 24 hr 25 mg PO DAILY Qty: 30 0RF Referrals: Lukasz Chapin MD [Primary Care Provider] - 02/15/24 Interventions: ED Discharge Assessment Last Done: 02/13/24 19:05 Discharge Date/Time: 02/13/24 19:05 Print Language: Maori
[2024-02-13 11:20] LABS: MANUAL DIFF FLAG NO
[2024-02-13 11:23] LABS: Basophils Percent Auto 0.4 % (0-2); Eosinophils Absolute Auto 0.1 X10*3/uL (0.0-0.4); Eosinophils Percent Auto 2.3 % (0-4); Hematocrit 36.1 % (37.0-47.0); Imm Gran Abs Auto 0.02 X10*3/uL (0.00-0.03); Imm Gran Pct Auto 0.4 % (0.0-0.4); Lymphocytes Absolute Auto 1.1 X10*3/uL (1.2-4.9); Lymphocytes Percent Auto 20.6 % (20-40); Mean Corpuscular HGB Conc 33.2 g/dl (31.0-35.0); Mean Corpuscular Hemoglobin 29.3 pg (27.0-33.0); Mean Corpuscular Volume 88.3 fL (80.0-98.0); Mean Platelet Volume 11.2 fL (9.4-12.3); Monocytes Absolute Auto 0.5 X10*3/uL (0.1-1.2); Monocytes Percent Auto 9.3 % (2-11); Neutrophils Absolute Auto 3.5 x10*3/uL (2.0-8.3); Platelet Count 192 X10*3/uL (160-400); Red Blood Count 4.09 X10*6/uL (4.20-5.50); Red Cell Distribution Width 14.6 % (11.0-16.0); White Blood Count 5.3 X10*3/uL (4.8-10.8)
[2024-02-13 11:26] LABS: INTERNATIONAL NORM RATIO 1.1 (0.9-1.1); Prothrombin Time 13.1 SEC (10.9-12.4)
[2024-02-13 11:46] LABS: Alanine Aminotransferase 19 U/L (0-31); Albumin Level 4.1 g/dL (3.5-5.0); Alkaline Phosphatase 57 U/L (39-117); Anion Gap 9 (12-20); Aspartate Amino Transferase 24 U/L (5-31); Bilirubin Total 0.2 mg/dL (0.0-1.0); Blood Urea Nitrogen 15 mg/dL (9-16); Calcium 8.8 mg/dL (8.4-10.2); Carbon Dioxide 26 mmol/L (22-29); Chloride 109 mmol/L (96-108); Creatinine Clr Calc Pharmacy 110.5; Estimated Glomerular Filt Rate > 60; Glucose Random 98 mg/dL (60-115); Lipase 39 U/L (8-78); Magnesium 1.9 mg/dL (1.6-2.6); Potassium 4.2 mmol/L (3.3-5.1); Sodium 140 mmol/L (135-145)
[2024-02-13 12:01] LABS: TSH reflex Free T4 1.55 uIU/mL (0.32-4.0)
[2024-02-13 18:39] VITALS: BP 135/71; PULSE 75; RESP 20; TEMP 36.9; O2SAT 98
--- NOTE | 2024-02-13 18:40 | ED.ARRPALP ---
HPI - Arrhythmia/Palpitations General Chief Complaint: Arrhythmia/Palpitations Stated Complaint: heart palpatations Time Seen by Provider: 02/13/24 18:16 History of Present Illness HPI narrative: Patient is a 48-year-old female with a history of PVCs in the past. Baseline is on metoprolol succinate 25 mg once a day. Patient was here last month for the same. After 30 days she has ran out of her medication. She only has an appointment on March 01. Tried to call her primary physician. She did not respond quickly patient was already in the emergency department wanting more medication. Patient waited for 4 hours in the waiting room. When I evaluated the patient patient already had her medication filled. She has no fever no chills no chest pain or shortness breath no nausea no vomiting. She has an appointment follow-up with her doctor on March 01. Her palpitation the same as prior. Has a history of PVCs. It is singular. It comes and goes. There is no specific trigger. Patient did not take any additional coffee no recreational drug use she is from home. Related Data Previous Rx's ?Medication ?Instructions ?Recorded metoprolol tartrate 25 mg tablet 25 mg PO DAILY #30 tabs 05/12/21 cyclobenzaprine 10 mg tablet 10 mg PO TID PRN muscle spasm #7 08/07/21 tabs metoprolol succinate 25 mg 25 mg PO DAILY #30 tabs 03/24/23 tablet,extended release 24 hr phenazopyridine 200 mg tablet 200 mg PO TID PRN pain 6 doses #6 03/24/23 (Pyridium) tabs metoprolol succinate 25 mg 25 mg PO DAILY #30 tabs 01/13/24 tablet,extended release 24 hr Allergies Allergy/AdvReac Type Severity Reaction Status Date / Time No Known Allergies Allergy Verified 02/13/24 10:58 Review of Systems Review of Systems: No fever no chills no chest pain or shortness breath no nausea no vomiting Yes all other systems are reviewed and are negative [facility] [place] Past Medical History Attestation statement: The following information was validated with the patient. Social History Social History Advance Directives: No Do you have a plan to hurt others: No Plan Physical Exam Vital Signs: Vital Signs: Last Vital Signs Temp 36.4 F L 02/13/24 10:53 Pulse 74 02/13/24 10:53 Resp 16 02/13/24 10:53 BP 139/71 02/13/24 10:53 Pulse Ox 98 02/13/24 10:53 O2 Del Method Room Air 02/13/24 10:53 BMI result Body Mass Index 29.6 Appearance: Alert. Oriented X3. No acute distress. Eyes: Pupils equal, round and reactive to light. ENT: Pharynx normal. Neck: Normal inspection. Neck supple. No lymph nodes noted. No crepitus CVS: Normal heart rate and rhythm. Pulses normal. Normal S1 and S2 Respiratory: No respiratory distress. Breath sounds normal. No Wheezing. No rales Abdomen: Soft and nontender. No rigidity. No distention. good BS x4 Skin: Skin warm and dry. Normal skin color. Normal skin turgor. Extremities: No lower extremity edema. Neurovascular intact to all extremities. No Lacerations. No Rash Neuro: Oriented X 3. No motor deficit. No sensory deficit. Moving all extermities. No slurred speech Medical Decision Making Medical Decision Making [facility] [place] Narrative: My interpretation patient's EKG showed a sinus rhythm heart rate is 70 [place] QRS QTC normal no acute ST segment elevation patient's electrolytes are normal hemoglobin is normal TSH is normal at 1.55 no evidence for hypo or hyperthyroid. Patient received her medication from her primary physician. Seventeen tablets was prescribed just enough for her to get follow-up on March 01. Patient states understanding. Will discharge patient home. Advised patient to take her medication and to schedule on a regular basis clinic appointments. Patient states understanding. In stable condition. Differential Diagnosis Differential Diagnoses: The differential diagnosis associated with the presentation includes PVC, med refill, electrolyte disturbance, anemia, hypothyroid /hyperthyroid Admission/Observation Consideration of admission/observation: Escalation of care including admission/observation considered Lab Data [facility] [place] Lab Attestation statement: I reviewed the patient's lab results. 02/13/24 11:14 02/13/24 11:14 Labs: Lab Results 02/13/24 Range/Units 11:14 WBC 5.3 (4.8-10.8) X10*3/uL RBC 4.09 L (4.20-5.50) X10*6/uL Hgb 12.0 (12.0-16.0) g/dl Hct 36.1 L (37.0-47.0) % MCV 88.3 (80.0-98.0) fL MCH 29.3 (27.0-33.0) pg MCHC 33.2 (31.0-35.0) g/dl RDW 14.6 (11.0-16.0) % Plt Count 192 (160-400) X10*3/uL MPV 11.2 (9.4-12.3) fL Immature Gran % (Auto) 0.4 (0.0-0.4) % Neut % (Auto) 67.0 (45-73) % Lymph % (Auto) 20.6 (20-40) % [place] % (Auto) 9.3 (2-11) % Eos % (Auto) 2.3 (0-4) % Baso % (Auto) 0.4 (0-2) % Lymph # (Auto) 1.1 L (1.2-4.9) X10*3/uL [place] # (Auto) 0.5 (0.1-1.2) X10*3/uL Eos # (Auto) 0.1 (0.0-0.4) X10*3/uL Baso # (Auto) 0.0 (0.0-0.2) X10*3/uL Abs Immat Gran (auto) 0.02 (0.00-0.03) X10*3/uL Absolute Neuts (auto) 3.5 (2.0-8.3) x10*3/uL Absolute Nucleated RBC 0.000 (0.0-0.012) X10*3/uL Nucleated RBC % (auto) 0.0 (0.0-0.2) /100WBC PT 13.1 H (10.9-12.4) SEC INR 1.1 (0.9-1.1) Sodium 140 (135-145) mmol/L Potassium 4.2 (3.3-5.1) mmol/L Chloride 109 H (96-108) mmol/L Carbon Dioxide 26 (22-29) mmol/L Anion Gap 9 L (12-20) BUN 15 (9-16) mg/dL Creatinine 0.74 (0.5-1.4) mg/dL Estim Creat Clear Calc 110.5 Estimated GFR > 60 Random Glucose 98 (60-115) mg/dL Calcium 8.8 (8.4-10.2) mg/dL Magnesium 1.9 (1.6-2.6) mg/dL Total Bilirubin 0.2 (0.0-1.0) mg/dL AST 24 (5-31) U/L ALT 19 (0-31) U/L Alkaline Phosphatase 57 (39-117) U/L Total Protein 7.0 (6.5-8.0) g/dL Albumin 4.1 (3.5-5.0) g/dL Lipase 39 (8-78) U/L TSH 1.55 (0.32-4.0) uIU/mL Independent Interpretation I performed an independent interpretation of an: EKG ( sinus heart rate is 70 [place] QRS QTC normal no acute ST segment elevation) Radiology Impression Discussion of test interpretation with radiology: I have reviewed the radiologist's reading. Chronic Conditions history of PVCs Discharge Plan Discharge Clinical Impression: Supraventricular tachycardia Patient Disposition: Home, Self-Care Instructions: Supraventricular Tachycardia (ED) Prescriptions: No Action cyclobenzaprine 10 mg tablet 10 mg PO TID PRN (Reason: muscle spasm) Qty: 7 0RF metoprolol tartrate 25 mg tablet 25 mg PO DAILY Qty: 30 0RF metoprolol succinate 25 mg tablet extended release 24 hr 25 mg PO DAILY Qty: 30 0RF phenazopyridine [Pyridium] 200 mg tablet 200 mg PO TID PRN (Reason: pain) Qty: 6 0RF metoprolol succinate 25 mg tablet extended release 24 hr 25 mg PO DAILY Qty: 30 0RF Referrals: Lukasz Chapin MD [Primary Care Provider] - 02/15/24 Print Language: Gabonese
--- NOTE | 2024-02-13 18:51 | ECG_ITS ---
Test Reason : DIZZINESS Blood Pressure : / mmHG Vent. Rate : 065 BPM Atrial Rate : 065 BPM P-R Int : 130 ms QRS Dur : 082 ms QT Int : 392 ms P-R-T Axes : 052 044 048 degrees QTc Int : 407 ms Normal sinus rhythm Normal ECG When compared with ECG of 13-FEB-2024 10:49, No significant change was found Referred By: Ariadna Moncada Electronically Signed By:JAKE ALVAREZ
[2024-02-13 19:05] VITALS: BP 135/71; PULSE 75; RESP 20; TEMP 36.9; O2SAT 98
== END 2024-02-13 19:05 | disposition home or self-care (01) ==
PROVIDERS: Physician Assistant; Emergency Provider Emergency Medicine Emergency Medical Services; PCP Family Medicine
DX: I47.10 Supraventricular tachycardia, unspecified (principal); R00.2 Palpitations; Z79.899 Other long term (current) drug therapy
CPT/HCPCS: 36415; 80053; 83690; 83735; 84443; 85025; 85610; 93005; 99283; 99284

== ENCOUNTER → 2024-02-13 10:37 | Outpatient (BNV) | payer OTHER, SELFPAY | PROVIDERS: Emergency Provider Emergency Medicine Emergency Medical Services; PCP Family Medicine; Visit Provider Internal Medicine | DX: R42 Dizziness and giddiness (principal) | CPT/HCPCS: 93010 ==

== ENCOUNTER 2024-07-15 23:20 | Emergency (ER) | payer BC, OTHER, SELFPAY ==
[2024-07-15 23:37] VITALS: BP 138/82; PULSE 78; RESP 20; TEMP 36.2; O2SAT 100; BMI 28.1
--- NOTE | 2024-07-16 00:01 | ED_ITS ---
HPI - General Adult General Chief complaint: General Medical Stated complaint: Tongue/Throat Pain Time Seen by Provider: 07/15/24 23:50 Source: patient Mode of arrival: ambulatory Limitations: no limitations History of Present Illness ED Provider: UDAY DEL ANGEL narrative: 49 yo female with no sig PMH here with c/o pain x 1 month on R jaw/neck area has had labs and US with her PCP but no improvement. She lost her cap of her tooth and it is exposed. She has emergency dental visit Monday. She denies any other treatments or abx. No sore throat and no white patch on tongue. MD complaint: mouth pain Onset (ago): month(s) (1) Location: mouth Radiation: non-radiation Severity: mild Quality: aching Pain Consistency: intermittent Relieving factors: none Exacerbating factors: none Associated symptoms: denies other symptoms Treatments prior to arrival: none Related Data Previous Rx's ?Medication ?Instructions ?Recorded metoprolol tartrate 25 mg tablet 25 mg PO DAILY #30 tabs 05/12/21 cyclobenzaprine 10 mg tablet 10 mg PO TID PRN muscle spasm #7 08/07/21 tabs metoprolol succinate 25 mg 25 mg PO DAILY #30 tabs 03/24/23 tablet,extended release 24 hr phenazopyridine 200 mg tablet 200 mg PO TID PRN pain 6 doses #6 03/24/23 (Pyridium) tabs metoprolol succinate 25 mg 25 mg PO DAILY #30 tabs 01/13/24 tablet,extended release 24 hr amoxicillin 875 mg-potassium 1 tab PO BID #13 tabs 07/16/24 clavulanate 125 mg tablet Allergies Allergy/AdvReac Type Severity Reaction Status Date / Time No Known Allergies Allergy Verified 07/15/24 23:39 Review of Systems Review of Systems: Constitutional : No Fever, No Chills ENT/Mouth : No swallowing difficulty, no change in voice, positive dental pain, positive jaw pain, no facial swelling Eyes: No Eye Pain, No Swelling Cardiovascular : No Chest Pain, No SOB Respiratory : No Cough, No Sputum Gastrointestinal : No Nausea, No Vomiting, No Diarrhea Genitourinary : No Dysuria Musculoskeletal : No Myalgias Skin : No rash Neuro : No Weakness, No Numbness, No Headache all other systems reviewed and are negative PMFSH Past Medical History Attestation statement: The following information was validated with the patient. Social History Social History (Updated 07/16/24 @ 00:05 by Taylor Rivera DO) Patient Tobacco Use Status: Tobacco use Unknown Physical Exam ED Vital Signs: Vital Signs - 24 hr 07/15/24 23:37 Temperature 97.1 F Pulse Rate 78 Respiratory Rate 20 Blood Pressure 138/82 Pulse Oximetry 100 Oxygen Delivery Method Room Air BMI result Body Mass Index 28.1 Appearance: Alert. Oriented X3. No acute distress. Eyes: Pupils equal, round and reactive to light. ENT: Pharynx normal. no swelling/exudates/thrush. R lower 2 molars - large open cavity with pulp exposure last molar, 2nd molar gum is swollen and coming around tooth - no abscess or fluctuance no trismus no sublingual or submandibular swelling, TM normal Neck: Normal inspection. Neck supple. no lymphadenopathy CVS: Normal heart rate and rhythm. Pulses normal. Respiratory: No respiratory distress. Breath sounds normal. Abdomen: Soft and nontender. Skin: Skin warm and dry. Normal skin color. Extremities: No lower extremity edema. Neuro: Oriented X 3. No motor deficit. No sensory deficit. CN2-12 intact Medical Decision Making Medical Decision Making MDM Narrative: 49 yo female with no sig PMH here with c/o R sided jaw line pain neck pain but her exam other than open exposed cavity and hyperemia swelling of the gum is not concerning and I have no concern for deeper space infection. Her neck exam is n ormal - will start on augmentin and she has follow up with dentist this monday. Differential Diagnosis Differential Diagnoses: The differential diagnosis associated with the presentation includes toothache, nerve pain, jaw bone pathology External Record Review External record reviewed: Outpatient record Prescription Management I considered prescription management with: Antibiotic Discharge Plan Discharge Clinical Impression: Complex dental cavity Patient Disposition: Home, Self-Care Instructions: Toothache (ED) Additional Instructions: follow up with your dentist return for fevers, worsening gum swelling, increased pain or any other concerns On amoxicillin-clavulanate, softer bowel movements are to be expected. Call your provider if you move your bowels more than 4 times a day, your bowel movements are almost all liquid, or you get a rash.? Prescriptions: New amoxicillin-pot clavulanate 875-125 mg tablet 1 tab PO BID Qty: 13 0RF No Action cyclobenzaprine 10 mg tablet 10 mg PO TID PRN (Reason: muscle spasm) Qty: 7 0RF metoprolol tartrate 25 mg tablet 25 mg PO DAILY Qty: 30 0RF metoprolol succinate 25 mg tablet extended release 24 hr 25 mg PO DAILY Qty: 30 0RF phenazopyridine [Pyridium] 200 mg tablet 200 mg PO TID PRN (Reason: pain) Qty: 6 0RF metoprolol succinate 25 mg tablet extended release 24 hr 25 mg PO DAILY Qty: 30 0RF Print Language: Hungarian
[2024-07-16 00:06] LABS: IDNOW Serial# 6674DD1D; Strep A Nucleic Acid Negative (Negative)
[2024-07-16 00:32] LABS: Influenza A PCR NEGATIVE (Negative); Influenza B PCR NEGATIVE (Negative); Resp Syncy Virus RNA Qual PCR NEGATIVE (Negative); SARS COV2 PCR INHOUSE NEGATIVE (Negative)
[2024-07-16 00:33] VITALS: BP 138/82; PULSE 78; RESP 20; TEMP 36.2; O2SAT 100
[2024-07-16] MEDS: Amoxicillin/Potassium Clav 875 MG TABLET PO (00:49)
== END 2024-07-16 03:11 | disposition home or self-care (01) ==
LOC: HO.ED 07-16 00:19
PROVIDERS: Emergency Provider Emergency Medicine
DX: K02.9 Dental caries, unspecified (principal); R07.0 Pain in throat; M54.2 Cervicalgia; Z79.899 Other long term (current) drug therapy; Z03.818 Encounter for observation for suspected exposure to other biological agents ruled out
CPT/HCPCS: 0241U; 87651; 99282; 99283

== ENCOUNTER 2024-08-25 14:38 | Emergency (ER) | payer BC, OTHER, SELFPAY ==
[2024-08-25 14:53] VITALS: BP 121/68; PULSE 90; RESP 16; TEMP 37.1; O2SAT 98; BMI 27.9
--- NOTE | 2024-08-25 14:53 | ED.GENADULT ---
HPI - General Adult General Chief complaint: Upper Respiratory Symptoms Stated complaint: flu like Time Seen by Provider: 08/25/24 16:17 Source: patient Mode of arrival: ambulatory Limitations: no limitations History of Present Illness ED Provider: MANOHAR BROWNE PA-C HPI narrative: 49 year old female presents to the ED today for evaluation of dry cough, sore throat, headache, myalgias, fatigue x2 days. Admits her daughters were ill with similar symptoms approximately 1 week ago. No specific diagnosis. She has been taking Advil cold/flu. Denies fever, chills, nausea, vomiting, diarrhea, abdominal pain, urinary symptoms, dysphagia. Related Data Previous Rx's ?Medication ?Instructions ?Recorded metoprolol tartrate 25 mg tablet 25 mg PO DAILY #30 tabs 05/12/21 cyclobenzaprine 10 mg tablet 10 mg PO TID PRN muscle spasm #7 08/07/21 tabs metoprolol succinate 25 mg 25 mg PO DAILY #30 tabs 03/24/23 tablet,extended release 24 hr phenazopyridine 200 mg tablet 200 mg PO TID PRN pain 6 doses #6 03/24/23 (Pyridium) tabs metoprolol succinate 25 mg 25 mg PO DAILY #30 tabs 01/13/24 tablet,extended release 24 hr amoxicillin 875 mg-potassium 1 tab PO BID #13 tabs 07/16/24 clavulanate 125 mg tablet benzocaine 15 mg-menthol 2.6 mg 1 erica mucous membrane Q2-4H PRN 08/25/24 lozenges (Cepacol Sore Throat sore throat #16 ea (benzocaine-menthol)) Allergies Allergy/AdvReac Type Severity Reaction Status Date / Time No Known Allergies Allergy Verified 08/25/24 14:55 Review of Systems Review of Systems: Constitutional: No fever, chills, fatigue, night sweats, weight changes ENT/Mouth: No ear pain, hearing loss, sinus pain, rhinorrhea, +sore throat, +congestion Eyes: No eye pain, swelling, redness, vision changes, discharge Cardio: No chest pain, palpitations, NICOLE, orthopnea, peripheral edema Pulm: No SOB, cough, sputum, wheezing, dyspnea, hemoptysis GI: No nausea, vomiting, hematemesis, abdominal pain, diarrhea, constipation, hematochezia, melena : No irregular bleeding, dysuria, frequency, urgency, hesitancy, hematuria, flank pain, urinary flow changes, urinary incontinence or retention MSK: No back pain, neck pain, joint pain, myalgias Skin: No lesions, rashes Neuro: No weakness, numbness, paresthesias, LOC, dizziness, +headache Psych: No anxiety/panic, depression, SI/HI, AH/VH All other systems reviewed and are negative. [facility] Past Medical History Attestation statement: The following information was validated with the patient. Source: old records reviewed and nursing notes reviewed Social History Social History Patient Tobacco Use Status: Tobacco use Unknown Advance Directives: No Advance Directives Information Provided: No Do you have a plan to hurt others: No Plan Physical Exam ED Vital Signs: Vital Signs - 24 hr 08/25/24 14:53 08/25/24 16:29 Temperature 98.7 F 98.7 F Pulse Rate 90 90 Respiratory Rate 16 16 Blood Pressure 121/68 121/68 Pulse Oximetry 98 98 Oxygen Delivery Method Room Air Room Air BMI result Body Mass Index 27.9 Vital signs stable General: Well appearing, in no acute distress. Skin: Warm, dry, intact. No rashes or lesions. Head: Normocephalic, atraumatic. EENT: Hearing is intact b/l. Conjunctiva clear. PERRLA. Moist mucous membranes.? Posterior oropharynx erythematous without edema. No tonsillar exudates or masses. Uvula midline. Controlling secretions and speaking in complete sentences. Neck: Supple without LAD Cardiac: Chest wall symmetric. RRR Lungs: Normal respiratory effort without accessory muscle use. CTA bilaterally. No rales, rhonchi, or wheezes.? Abdomen: Soft, non-tender, non-distended. No rebound tenderness or guarding. Positive BS x4. Back: No midline spinous or paraspinal tenderness. No step off deformity. Ext: Upper and lower extremities atraumatic, without tenderness, deformity, swelling or erythema. Full ROM throughout. Neuro: AOx3. Normal speech. Ambulating with steady gait Course Course Course Narrative: Patient tested positive for COVID. Negative flu, RSV, strep throat. Vital signs stable. Satting 98% on room air. No respiratory distress. Discussed workup results with patient. Advised symptomatic treatment. Will send Cepacol throat lozenges to pharmacy for sore throat. Patient has remained stable throughout ED visit today. Discussed worrisome signs and symptoms and when to return to the ED. All questions answered at this time. Patient is agreeable with disposition and stable for discharge. Medical Decision Making Medical Decision Making [facility] Narrative: 49 year old female presents to the ED today for evaluation of dry cough, sore throat, headache, myalgias, fatigue x2 days. Vital signs stable, afebrile, not hypoxic. Well-appearing and in no acute distress. Exam benign. Differential diagnosis includes viral syndrome, strep throat, headache, migraine. Unlikely pneumonia, bronchitis. Unlikely [employer], retropharyngeal abscess, epiglottitis, peritonsillar abscess. Plan for viral and strep swabs. Differential Diagnosis Differential Diagnoses: The differential diagnosis associated with the presentation includes As above Admission/Observation Not indicated Lab Data MDM Lab Attestation statement: I reviewed the patient's lab results. As above Labs: Lab Results 08/25/24 Range/Units 15:18 Influenza Type A (PCR) NEGATIVE (Negative) Influenza Type B (PCR) NEGATIVE (Negative) RSV RNA Qual (PCR) NEGATIVE (Negative) SARS-CoV-2 RNA (RT-PCR) POSITIVE A (Negative) S. pyogenes GrpA MINDA Negative (Negative) External Record Review External record reviewed: Inpatient record Prescription Management I considered prescription management with: Other (Cepacol throat lozenges) Social Determinants Patient?s care significantly limited by Social Determinants of Health including: Other Social Determinant of Health Critical Care Time Critical Care Time Critical Care Time: No Discharge Plan Discharge Clinical Impression: COVID-19 Patient Disposition: Home, Self-Care Instructions: COVID-19 (Coronavirus Disease 2019) (ED) Additional Instructions: Today you tested positive for COVID-19.? Take Ibuprofen or Tylenol as needed for fevers or body aches.? Quarantine for 5 days and ensure you wear a mask. After 5 days you should wear a mask for 5 days after that.? Practice social distancing and good hand hygiene. Drink plenty of fluids. Follow-up with your primary care provider this week. Return to the emergency department with new or worsening symptoms. In case of emergency call 911 You can purchase a pulse oximeter from your local pharmacy or grocery store, and monitor your oxygen saturation if it goes below 94% you should return to the emergency department for further evaluation. Prescriptions: New Cepacol Sore Throat (luisa-men) 15-2.6 mg lozenge 1 erica mucous membrane Q2-4H PRN (Reason: sore throat) Qty: 16 0RF No Action cyclobenzaprine 10 mg tablet 10 mg PO TID PRN (Reason: muscle spasm) Qty: 7 0RF metoprolol tartrate 25 mg tablet 25 mg PO DAILY Qty: 30 0RF metoprolol succinate 25 mg tablet extended release 24 hr 25 mg PO DAILY Qty: 30 0RF phenazopyridine [Pyridium] 200 mg tablet 200 mg PO TID PRN (Reason: pain) Qty: 6 0RF metoprolol succinate 25 mg tablet extended release 24 hr 25 mg PO DAILY Qty: 30 0RF amoxicillin-pot clavulanate 875-125 mg tablet 1 tab PO BID Qty: 13 0RF Referrals: Physician,Unknown J [Primary Care Provider, Medical] Stand Alone Forms: Work/School Release Interventions: ED Discharge Assessment Last Done: 08/25/24 16:29 Discharge Date/Time: 08/25/24 16:29 Print Language: Ghanaian
[2024-08-25 15:37] LABS: IDNOW Serial# 55D5AD1C; Strep A Nucleic Acid Negative (Negative)
[2024-08-25 16:09] LABS: Influenza A PCR NEGATIVE (Negative); Influenza B PCR NEGATIVE (Negative); Resp Syncy Virus RNA Qual PCR NEGATIVE (Negative); SARS COV2 PCR INHOUSE POSITIVE (Negative)
--- OUTSIDE RECORDS SUMMARY | 2024-08-25 16:28 | XMS_ITS | Data Portability ---
Author Organization [facility], [facility] Address [address] [place] [address] Care Team Providers Care Tumbling And Rolling Supervisor Name Role Phone LUKASZ OSWALD Primary Care Provide r [facility] OTHER Assessment Encounter Date Assessment Date Assessment LastModified by Organization Details LastModified Time 09/21/2021 09/21/2021 (6) Patient feel s better but midback disicomfort persists. Added deep tissue mobs today. PLAN: 1 week follow up. jackeline Not available 09/21/2021 11:50:09 05/01/2024 05/01/2024 Patient agreed t o this visit via a secure telehealth platform. Patient understands this is a scheduled visit and the usual procedures with regard to billing and confidentiality apply. Patient was notified that the provider location is home Patient location: home During the visit the patient s medical history and medical record were reviewed. The patient was notified to call our office for worsening or urgent symptoms. Not available 05/01/2024 09:00:00 08/09/2024 08/09/2024 Follow up in 1-2 months to assess GERD symptoms. Not available 08/09/2024 11:09:12 Plan of Treatment Reminders Order Date Submit Date Provider Last Modified By Organization Details Last Modified Time Details Appointments Foll ow Up, 15 2024 10:30A M CHIQUIS SANTIAGO Not available Not available Not available Foll ow Up, 30 2024 09:30A M Prema Dupont MD Not available Not available Not available Mamm rina m, Scre enin g 2024 01:00P M [facility] Mammography Not available Not available Not available Lab HIV (1+2 ) anti bodi es, EIA, seru m, refl ex HIV- 1 west yuly blot (WB) 2024 025 [facility], [address] [place] [address], [id number], 07/06/2024 06:37:37 CT + NG RNA, urin e 2024 025 [facility], [address] [place] [address], [id number], 08/06/2024 15:19:54 herp es simp gerry, cult ure, unsp ecif ied spec imen 2024 025 [facility], [address] [place] [address], [id number], 08/06/2024 15:19:54 urin christie is, dips tick , auto 2024 025 [facility], [address] [place] [address], [id number], 08/06/2024 15:19:54 FSH (fol licl e-st imul atin g horm one) , seru m 2024 025 [facility], [address] [place] [address], [id number], 03/04/2024 14:40:02 lh (misha browne horm one) , seru m 2024 025 [facility], [address] [place] [address], [id number], 03/04/2024 14:40:03 lipi jenise sanchez l, seru m 2024 025 [facility], [address] [place] [address], [id number], 03/04/2024 14:23:20 CMP, seru m or plas ma 2024 025 [facility], [address] [place] [address], [id number], 03/04/2024 14:23:18 CBC 2024 025 [facility], [address] [place] [address], [id number], 03/04/2024 12:44:32 TSH, seru m or plas ma 2024 025 [facility], [address] [place] [address], [id number], 03/04/2024 15:10:29 Referral gyne colo gist refe rral 2024 025 [email or web address] [facility], [address] [place], [address], 03/19/2024 13:39:36 beha vior al heal th refe rral 2024 025 sonia rty Scott Chang [employer], [address] [place], [address], 03/07/2024 08:46:17 card iolo gist refe rral 2024 025 [facility], [address], [place], [address], 07/02/2024 14:44:57 Procedures colo nosc opy proc edur e (PRO C) - Plea se sche dule at Cool ey Kory inso n as [facility] does not take the keke ents insu ranc eAnshu Than jam arellano [email or web address] [facility], [address] [place], [address], 03/07/2024 16:44:11 Surgeries None david rded . Imaging US, head + neck , soft tiss ue 2024 025 [facility] ([facility]), [address], [place], [place], [address], 07/10/2024 11:25:25 MAMM O, scre enin g, johnnie synt hesi s, bila phillip l - 2nd Look Cons ult/ Diag Mamm o/US Pepper st/G uide d Asp/ Pepper st Bx/C lip Plac emen t, as clin ical ly bhavana alanna d. 2024 025 [facility] ([facility]), [address], [place], [place], [address], 08/20/2024 11:46:22 Medication Orders omep egan le 20 mg caps ule, marilyn yed rele ase 2024 025 [facility] [address] [place], [address], 08/09/2024 10:54:38 sert rali ne 50 mg tabl et 2024 025 [email or web address] piersono [facility]20[facility], [address] [place], [address], 05/03/2024 11:05:07 sert rali ne 25 mg tabl et 2024 025 [facility] [address] [place], [address], 05/01/2024 09:07:37 meto prol ol succ inat e ER 25 mg tabl et,e xten ded rele ase 24 hr 2024 025 [email or web address] [facility]2024, [address] [place], [address], 03/06/2024 16:10:51 Patient TargetsNo targets recorded. Patient InstructionsNo instructions recorded. Reason for Referral Behavioral Health Referral f or Depression screening Referring Physician: Maribel Quiroz, Family Medicine, Encounter Date: 03/04/2024 Forensic Manager Referral for Pa roxysmal atrial fibrillation Referring Physician: Maribel Quiroz Family Medicine, Encounter Date: 03/04/2024 Office Assistant Receptionist Referral for Pe rimenopausal state Referring Physician: Maribel Quiroz Family Medicine, Encounter Date: 03/04/2024 Results Created Date Observation Date Name Description Value Unit Range Abnormal Flag Note LastModifiedBy Organization Detail LastModifiedTime 12/14/1912/13/2022 BASIC METAB OLIC PANEL glucose 102 mg/dL 70-100 high Not Available [address], [address], 12/13/2022 15:46:42 12/14/1912/13/2022 BASIC METAB OLIC PANEL BUN 15 mg/dL 7-18 Not Available [address], [address], 12/13/2022 15:46:42 12/14/1912/13/2022 BASIC METAB OLIC PANEL creatinine 1.0 mg/dL 0.8-1. 3 Not Available [address], [address], 12/13/2022 15:46:42 12/14/1912/13/2022 BASIC METAB OLIC PANEL B/C 15.0 ratio Not Available [address], [address], 12/13/2022 15:46:42 12/14/1912/13/2022 BASIC METAB OLIC PANEL GFR >=60ML /MIN mL/mi n normal >=60m L/min - Mirlande l or midly reduc ed <60mL /min- Decre ased kidne y funct ion <15mL /min - Kidne y failu re [facility] calcu lates estim ated Glome rular Filtr ation Rate (eGFR ) using the Chron ic Kidne y Disea se Epide miolo gy Colla borat ion (CKD- EPI) Equat ion (Nick fonseca et. al 2020) as recom lindsey d by the Beverly suarez . eGFR is based on age, serum creat inine , and sex. CKD-E PI does not calcu late eGFR by race, does not apply to child phan (age <18 years ), and shoul d not be used in pregn haris. Not Available [address], [address], 12/13/2022 15:46:42 12/14/1912/13/2022 BASIC METAB OLIC PANEL sodium 137 mmol/ L 136-14 5 Not Available [address], [address], 12/13/2022 15:46:42 12/14/1912/13/2022 BASIC METAB OLIC PANEL potassium 4.0 mmol/ L 3.5-5. 1 Not Available [address], [address], 12/13/2022 15:46:42 12/14/1912/13/2022 BASIC METAB OLIC PANEL chloride 101 mmol/ L 96-107 Not Available [address], [address], 12/13/2022 15:46:42 12/14/1912/13/2022 BASIC METAB OLIC PANEL anion gap 11.2 5.0-15 .0 Not Available [address], [address], 12/13/2022 15:46:42 12/14/1912/13/2022 BASIC METAB OLIC PANEL CO2 25 mmol/ L 21-32 Not Available [address], [address], 12/13/2022 15:46:42 12/14/1912/13/2022 BASIC METAB OLIC PANEL calcium 9.4 mg/dL 8.5-10 .3 Not Available [address], [address], 12/13/2022 15:46:42 12/14/1912/13/2022 LIPID PANEL cholesterol 212 mg/dL <200 mg/dl Symone able 200-2 39 mg/dl Borde rline High >240 mg/dl High Not Available [address], [address], 12/13/2022 15:46:43 12/14/1912/13/2022 LIPID PANEL triglyceride s 114 mg/dL <150 mg/dL Mirlande l 150-1 99 mg/dL Borde rline High 200-4 99 mg/dL High >500 mg/dL Very High Not Available [address], [address], 12/13/2022 15:46:43 12/14/1912/13/2022 LIPID PANEL direct HDL 77 mg/dL <40 mg/dl - Major Risk for CHD >60 mg/dl - Negat sara Risk for CHD Not Available [address], [address], 12/13/2022 15:46:43 12/14/1912/13/2022 DIREC T LDL direct LDL 102 mg/dL RISK CATEG ORY LDL GOAL _ CHD or CHD Risk Equiv alent s <100 mg/dl (10-y ear risk >20%) 2+ Risk Facto rs <130 mg/dl (10-y ear risk <= 20%) 0-1 Risk Facto r <160 mg/dl Almo st all peopl e with 0-1 risk facto r have a 10 year risk <10%, thus 10 year risk asses ment in peopl e with 0-1 risk facto r is not neces theodora. Not Available [address], [address], 12/13/2022 15:46:44 12/14/1912/15/2022 HEPAT ITIS B SURFA CE AB IMMUN ITY, QN hepatitis B surface Ab immunity, qn <5 mIU/m L > or = 10 low PATIE NT DOES NOT HAVE IMMUN ITY TO HEPAT ITIS B VIRUS . For addit ional infor matio n, pleas e refer to http: //[facility] renzo babcock stdia gnost ics.c om/fa q/FAQ 105 (This link is being provi ded for infor matio nal/ educa ren l purpo ses only) . Not Available [facility] [address], [address], 12/15/2022 02:02:36 12/14/19 23 12/15/2022 HIV 1/2 ANTIG EN/AN TIBOD Y,FOU RTH GENER ATION W/RFL HIV Ag/Ab, 4TH gen NON-RE ACTIVE non-re active normal HIV-1 antig en and HIV-1 /HIV- 2 antib odies were not detec oziel. There is no labor atory evide nce of HIV infec tion. PLEAS E NOTE: This infor matio n has been discl osed to you from recor ds whose confi denti ality may be prote cted by state law. If your state requi res such prote ction , then the state law prohi bits you from cleve araujo furth er discl osure of the infor matio n witho ut the speci fic writt en conse nt of the perso n to whom it perta ins, or as other lynch permi tted by law. A gener al autho rizat ion for the relea se of medic al or other infor matio n is NOT suffi cient for this purpo se. For addit ional infor matio n pleas e refer to http: //kalpana babcock stdia gnost ics.c om/fa q/FAQ 106 (This link is being provi ded for infor matio nal/ educa ren l purpo ses only. ) The perfo rmanc e of this assay has not been clini marilyn valid ated in patie nts less than 2 years old. Not Available [email or web address] [address] [place], [address], 12/15/2022 02:02:36 12/14/19 23 12/15/2022 HEPAT ITIS C AB W/REF L TO HCV RNA, QN, PCR hepatitis C antibody NON-RE ACTIVE non-re active normal HCV antib kishor was non-r eacti ve. There is no labor atory evide nce of HCV infec tion. In most cases , no furth er actio n is requi red. Howev er, if recen t HCV expos ure is suspe cted, a test for HCV RNA (test code 47529 ) is sugkong sted. For addit ional infor des gerardo e refer to http: //[facility] renzo babcock stdia gnost ics.c om/fa q/FAQ 22v1 (This link is being provi ded for infor des manuel/ educa ren l purpo ses only. ) Not Available [facility] [address] [place] [address], [place], [address], 12/15/2022 02:02:37 12/14/1912/15/2022 RPR RPR NON-RE ACTIVE nonrea ctive Not Available [address], [address], 12/15/2022 14:33:11 12/14/19 23 12/16/2022 CHLAM YDIA/ GC, URINE MINDA N. gonorrhoeae GC NEG negati ve normal Not Available [address], [address], 12/16/2022 14:21:30 12/14/19 23 12/16/2022 CHLAM YDIA/ GC, URINE MINDA C. trachomatis CT NEG negati ve normal Not Available [address], [address], 12/16/2022 14:21:30 03/04/19 25 03/04/2024 CBC WBC 7.64 K/ L 3.98-1 0.04 Not Available [address], [address], 03/04/2024 12:44:32 03/04/1903/04/2024 CBC RBC 4.23 M/ L 3.93-5 .22 Not Available [address], [address], 03/04/2024 12:44:32 03/04/1903/04/2024 CBC HGB 12.4 g/dL 11.2-1 5.7 Not Available [address], [address], 03/04/2024 12:44:32 03/04/1903/04/2024 CBC HCT 38.3 % 34.1-4 4.9 Not Available [address], [address], 03/04/2024 12:44:32 03/04/1903/04/2024 CBC MCV 90.5 fL 79.4-9 4.8 Not Available [address], [address], 03/04/2024 12:44:32 03/04/1903/04/2024 CBC MCH 29.3 pg 25.6-3 2.2 Not Available [address], [address], 03/04/2024 12:44:32 03/04/1903/04/2024 CBC MCHC 32.4 g/dL 32.2-3 5.5 Not Available [address], [address], 03/04/2024 12:44:32 03/04/1903/04/2024 CBC plt 211 K/ L 182-36 9 Not Available [address], [address], 03/04/2024 12:44:32 03/04/1903/04/2024 CBC MPV 12.0 fL 9.4-12 .3 Not Available [address], [address], 03/04/2024 12:44:32 03/04/1903/04/2024 CBC neut% 77.0 % 34.0-7 1.1 high Not Available [address], [address], 03/04/2024 12:44:32 03/04/1903/04/2024 CBC neut# 5.88 1.56-6 .13 Not Available [address], [address], 03/04/2024 12:44:32 03/04/1903/04/2024 CBC lymph % 12.7 % 19.3-5 1.7 low Not Available [address], [address], 03/04/2024 12:44:32 03/04/1903/04/2024 CBC lymph # 0.97 K/ L 1.18-3 .74 low Not Available [address], [address], 03/04/2024 12:44:32 03/04/1903/04/2024 CBC mono% 7.7 % 4.7-12 .5 Not Available [address], [address], 03/04/2024 12:44:32 03/04/1903/04/2024 CBC mono# 0.59 0.24-0 .56 high Not Available [address], [address], 03/04/2024 12:44:32 03/04/1903/04/2024 CBC eo% 1.8 % 0.7-5. 8 Not Available [address], [address], 03/04/2024 12:44:32 03/04/19 25 03/04/2024 CBC eo# 0.14 0.04-0 .36 Not Available [address], [address], 03/04/2024 12:44:32 03/04/19 25 03/04/2024 CBC baso% 0.5 % 0.1-1. 2 Not Available [address], [address], 03/04/2024 12:44:32 03/04/19 25 03/04/2024 CBC baso# 0.04 0.00-0 .08 Not Available [address], [address], 03/04/2024 12:44:32 03/04/19 25 03/04/2024 CBC RDW-CV 14.5 % 11.7-1 4.4 high Not Available [address], [address], 03/04/2024 12:44:32 03/04/19 25 03/04/2024 CBC Ig% 0.300 % 0.000- 1.500 Ig % >0.5 Indic ates possi ble Left Shift Not Available [address], [address], 03/04/2024 12:44:32 03/04/19 25 03/04/2024 CBC Ig# 0.020 0.000- 0.093 Not Available [address], [address], 03/04/2024 12:44:32 03/04/19 25 03/04/2024 CBC NRBC% 0.0 % 0.0-0. 2 Not Available [address], [address], 03/04/2024 12:44:32 03/04/19 25 03/04/2024 CBC NRBC# 0.000 0.000- 0.012 Not Available [address], [address], 03/04/2024 12:44:32 03/04/19 25 03/04/2024 COMP. METAB OLIC PANEL glucose 98 mg/dL 70-100 Not Available [address], [address], 03/04/2024 14:23:18 03/04/19 25 03/04/2024 COMP. METAB OLIC PANEL BUN 11 mg/dL 7-18 Not Available [address], [address], 03/04/2024 14:23:18 03/04/19 25 03/04/2024 COMP. METAB OLIC PANEL creatinine 0.8 mg/dL 0.8-1. 3 Not Available [address], [address], 03/04/2024 14:23:18 03/04/19 25 03/04/2024 COMP. METAB OLIC PANEL B/C 13.8 ratio Not Available [address], [address], 03/04/2024 14:23:18 03/04/19 25 03/04/2024 COMP. METAB OLIC PANEL GFR >=60ML /MIN mL/mi n normal >=60m L/min - Mirlande l or midly reduc ed <60mL /min- Decre ased kidne y funct ion <15mL /min - Kidne y failu re [facility] calcu lates estim ated Glome rular Filtr ation Rate (eGFR ) using the Chron ic Kidne y Disea se Epide miolo gy Colla borat ion (CKD- EPI) Equat ion (Nick r et. al 2020) as recom lindsey d by the Natio nal Kidne y Found ation . eGFR is based on age, serum creat inine , and sex. CKD-E PI does not calcu late eGFR by race, does not apply to child phan (age <18 years ), and shoul d not be used in pregn haris. Not Available [address], [address], 03/04/2024 14:23:18 03/04/19 25 03/04/2024 COMP. METAB OLIC PANEL sodium 140 mmol/ L 136-14 5 Not Available [address], [address], 03/04/2024 14:23:18 03/04/19 25 03/04/2024 COMP. METAB OLIC PANEL potassium 4.6 mmol/ L 3.5-5. 1 Not Available [address], [address], 03/04/2024 14:23:18 03/04/19 25 03/04/2024 COMP. METAB OLIC PANEL chloride 103 mmol/ L 96-107 Not Available [address], [address], 03/04/2024 14:23:18 03/04/19 25 03/04/2024 COMP. METAB OLIC PANEL anion gap 9.1 5.0-15 .0 Not Available [address], [address], 03/04/2024 14:23:18 03/04/19 25 03/04/2024 COMP. METAB OLIC PANEL CO2 28 mmol/ L 21-32 Not Available [address], [address], 03/04/2024 14:23:18 03/04/19 25 03/04/2024 COMP. METAB OLIC PANEL calcium 8.9 mg/dL 8.5-10 .3 Not Available [address], [address], 03/04/2024 14:23:18 03/04/19 25 03/04/2024 COMP. METAB OLIC PANEL total protein 7.0 g/dL 6.4-8. 2 Not Available [address], [address], 03/04/2024 14:23:18 03/04/19 25 03/04/2024 COMP. METAB OLIC PANEL albumin 3.7 g/dL 3.4-5. 0 Not Available [address], [address], 03/04/2024 14:23:18 03/04/19 25 03/04/2024 COMP. METAB OLIC PANEL globulin 3.3 g/dL Not Available [address], [address], 03/04/2024 14:23:18 03/04/19 25 03/04/2024 COMP. METAB OLIC PANEL A/G 1.1 ratio 0.8-2. 0 Not Available [address], [address], 03/04/2024 14:23:18 03/04/19 25 03/04/2024 COMP. METAB OLIC PANEL total bilirubin 0.30 mg/dL 0.00-1 .00 Not Available [address], [address], 03/04/2024 14:23:18 03/04/19 25 03/04/2024 COMP. METAB OLIC PANEL AST 17 U/L 0-37 Not Available [address], [address], 03/04/2024 14:23:18 03/04/19 25 03/04/2024 COMP. METAB OLIC PANEL ALT 20 U/L 6-63 Not Available [address], [address], 03/04/2024 14:23:18 03/04/19 25 03/04/2024 COMP. METAB OLIC PANEL alk. phos. 67 U/L 50-136 Not Available [address], [address], 03/04/2024 14:23:18 03/04/19 25 03/04/2024 LIPID PANEL cholesterol 191 mg/dL <200 mg/dl Symone able 200-2 39 mg/dl Borde rline High >240 mg/dl High Not Available [address], [address], 03/04/2024 14:23:20 03/04/19 25 03/04/2024 LIPID PANEL triglyceride s 83 mg/dL <150 mg/dL Mirlande l 150-1 99 mg/dL Borde rline High 200-4 99 mg/dL High >500 mg/dL Very High Not Available [address], [address], 03/04/2024 14:23:20 03/04/19 25 03/04/2024 LIPID PANEL direct HDL 78 mg/dL <40 mg/dl - Major Risk for CHD >60 mg/dl - Negat sara Risk for CHD Not Available [address], [address], 03/04/2024 14:23:20 03/04/19 25 03/04/2024 DIREC T LDL direct LDL 95 mg/dL RISK CATEG ORY LDL GOAL _ CHD or CHD Risk Equiv alent s <100 mg/dl (10-y ear risk >20%) 2+ Risk Facto rs <130 mg/dl (10-y ear risk <= 20%) 0-1 Risk Facto r <160 mg/dl [facility] peopl e with 0-1 risk facto r have a 10 year risk <10%, thus 10 year risk asses ment in peopl e with 0-1 risk facto r is not jodie yip. Not Available [address], [address], 03/04/2024 14:23:21 03/04/19 25 03/04/2024 FSH FSH 12.8 mIU/m L Male: 1.0 - 42.5 mIU/m L Femal e Ovula ting: Folli cular Phase : 2.7 - 15.4 mIU/m L Peak: 3.9 - 22.0 mIU/m L Lutea l Phase : 1.0 - 14.4 mIU/m L Postm enopa usal: 25.0 - 160.0 mIU/m L Not Available [address], [address], 03/04/2024 14:40:02 03/04/19 25 03/04/2024 LH LH 13.0 mIU/m L Male: 1.7 - 11.2 mIU/m L Femal e Ovula ting: Folli cular Phase : 1.7 - 13.3 mIU/m L Peak: 4.1 - 68.7 mIU/m L Lutea l Phase : 0.5 - 19.8 mIU/m L Postm enopa usal: 14.4 - 62.2 mIU/m L Not Available [address], [address], 03/04/2024 14:40:03 03/04/19 25 03/04/2024 TSH TSH 2.81 uIU/m L 0.50-6 .00 The Ameri can Colle ge of Endoc rinol ogy and Ameri can Thyro id Assoc iatio n recom mend goal TSH value s betwe en 0.4-4 .0 mIU/m L. Not Available [address], [address], 03/04/2024 15:10:28 07/05/1907/06/2024 HIV 1/2 ANTIG EN/AN TIBOD Y,FOU RTH GENER ATION W/RFL HIV Ag/Ab, 4TH gen NON-RE ACTIVE non-re active normal HIV-1 antig en and HIV-1 /HIV- 2 antib odies were not detec oziel. There is no labor atory evide nce of HIV infec tion. PLEMAHOGANY E NOTE: This infor matio n has been discl osed to you from recor ds whose confi denti ality may be prote cted by state law. If your state requi res such prote ction , then the state law prohi bits you from cleve atkins any furth er discl osure of the infor matio n witho ut the speci fic writt en conse nt of the perso n to whom it perta ins, or as other lynch permi tted by law. A gener al autho rizat ion for the relea se of medic al or other infor matio n is NOT suffi cient for this purpo se. For addit ional infor matio n pleas e refer to http: //[facility] catio n.que stdia gnost ics.c om/fa q/FAQ 106 (This link is being provi ded for infor matio nal/ educa ren l purpo ses only. ) The perfo rmanc e of this assay has not been clini marilyn valid ated in patie nts less than 2 years old. Not Available [email or web address] [address] [place] [address] [place], [place], [address], 07/06/2024 06:37:37 04/26/19 25 04/18/2024 shanell r monit or No observ ation record ed. [id number] [facility] - [address], [place], [address], 04/29/2024 16:15:17 07/11/19 25 07/10/2024 US, head + neck, soft tissu e CLINIC AL HISTOR Y: Right neck lump/p ain TECHNI QUE: 2D Sonogr aphy of the neck perfor med. COMPAR KIRSTEN: No pertin ent prior. Image total: 12 FINDIN GS: There is an approx imatel y 1.2 x 1.0 x 0.6 cm lymph node, within the right neck, report edly at level 1, 0.6 cm short axis, not pathol ogic by size criter ia. IMPRES ANABEL: Small right cervic al lymph node not pathol ogic by size criter ia. Readin g Physic jericho: Aly haynes [id number] [facility] ([facility]) [address], [place], [address], 07/24/2024 08:46:03 Result Notes None recorded. Problems Name Problem SNOMED Code Status Onset Date Resolution Date Notes Provider Name and Address Organization Details Recorded Time Abdomina l pain 06550783 Completed 12/07/2017 Removal Reason: resolved Lukasz Kern MD [address] [place] [address] [place], [address], [facility] 8 19:11:19 Palpitat ions 18295540 Active Jody Wiley NP [address] [place] [address] [place], [place], [address], [facility] 6 21:50:12 Disorder of vision 13016176 Active Jody Wiley NP [address] [place] [address] [place], [place], [address], [facility] 5 10:15:04 Headache 38037886 Active Jody Wiley NP [address] [place], [place] [address], [place], [address], [facility] 5 10:15:04 Anxiety disorder 244809915 Active Jody Wiley NP [address] [place], [place] [address], [place], [address], [facility] 6 21:50:12 Right lower quadrant pain 629827084 Completed 12/07/2017 Removal Reason: resolved Lukasz Kern MD [address] [place] [address] [place], [place], [address], [facility] 8 19:11:13 Dysuria 47451863 Completed 12/07/2017 Removal Reason: resolved Lukasz Kern MD [address] [place] [address] [place], [address], [facility] 8 19:11:27 Urinary tract infectio us disease 34166243 Completed 12/07/2017 Removal Reason: resolved Lukasz Kern MD [address] [place] [address] [place], [address], [facility] 8 19:11:07 Obesity 576780549 Active [address], LDN [address] [place], [address], [facility] 8 17:07:15 Paroxysm al atrial fibrilla tion 870252345 Active 2021 Lukasz Kern MD [address] [place], [place] [address], [address], [facility] 08:19:07 Generali zed anxiety disorder 01954913 Active 2021 Lukasz Kern MD [address] [place], [place] [address], [address], [facility] 2 08:19:11 Irritabl e bowel syndrome 44163116 Active 2021 Lukasz Kern MD [address] [place], [place] [address], [address], [facility] 2 08:19:12 [facility] [id number] 9104 Active 2024 CHIQUIS SANTIAGO [address] [place], [place] [address], [address], [facility] 5 09:00:06 Acute depressi on 487976908 Active 2024 CHIQUIS SANTIAGO [address] [place], [place] [address], [address], [facility] 5 09:00:20 Problem Notes None recorded. Procedures Surgical History Date Name Laterality Status Provider Name and Address Organization Details Recorded Time 09/22/19 73918: Manual Therapy completed Coral Gleason, FABIOLA [address] [place], [place] [address], [address], [facility] 09/21/2021 11:49:32 09/08/19 08305: Therapeutic Exercise completed Coral Gleason PT [address] [place], [place] [address], [address], [facility] 09/07/2021 16:21:50 09/08/19 22 12089: Manual Therapy completed Coral Gelason PT [address] [place], [place] [address], [address], [facility] 09/07/2021 16:21:55 09/02/19 22 [address]385: Therapeutic Exercise completed Coral Gleason, PT [address], [place], [address], [facility] 09/01/2021 15:05:43 09/02/19 22 49432: Manual Therapy completed Coral Gleason, PT [address] [place], [address], [facility] 09/01/2021 15:05:48 08/24/19 22 40158: Therapeutic Exercise completed Coral Gleason, PT [address] [place], [address], [facility] 08/23/2021 10:44:20 08/24/19 22 64002: Manual Therapy completed Coral Gleason, PT [address] [place], [address], [facility] 08/23/2021 10:31:03 08/05/19 22 83883: Therapeutic Exercise completed Coral Gleason, PT [address] [place], [address], [facility] 08/04/2021 11:17:15 08/05/19 22 53745: Manual Therapy completed Coral Gleason, PT [address] [place], [address], [facility] 08/04/2021 11:17:20 07/22/19 22 Physical Activity Counselling completed Coral Gleason, PT [address] [place], [address], [facility] 07/21/2021 11:14:39 07/22/19 22 93314: PT Eval Low Complexity completed Coral Gleason, PT [address] [place], [address], [facility] 07/21/2021 11:14:42 09/20/19 17 POC Urinalysis Testing completed Elda Horowitz [facility] 09/19/2016 14:40:34 08/09/19 17 31918: Therapeutic Exercise completed Coral Gleason, PT [address] [place], [address], [facility] 08/08/2016 16:52:26 08/09/19 17 21243: Manual Therapy completed Coral Gleason, PT [address] [place], [address], [facility] 08/08/2016 16:52:34 05/24/19 17 94791: Therapeutic Exercise completed Coral Gleason, PT [address] [place], [address], [facility] 05/23/2016 15:04:59 05/24/19 17 26497: Manual Therapy completed Coral Gleason, PT [address] [place], [address], [facility] 05/23/2016 15:05:04 05/20/19 17 10471: Therapeutic Exercise completed Coral Gleason, PT [address] [place], [address], [facility] 05/21/2016 16:13:58 05/20/19 17 38371: Manual Therapy completed Coral Gleason, PT [address] [place], [address], [facility] 05/21/2016 16:14:04 05/17/19 17 87560: Therapeutic Exercise completed Coral Gleason, PT [address] [place], [address], [facility] 05/16/2016 16:02:33 05/17/19 17 73226: Manual Therapy completed Coral Gleason, PT [address] [place], [address], [facility] 05/16/2016 16:02:22 05/13/19 17 17994: Therapeutic Exercise completed Coral Gleason, PT [address] [place], [address], [facility] 05/12/2016 15:35:30 05/13/19 17 58625: Manual Therapy completed Coral Gleason, PT [address] [place], [address], [facility] 05/12/2016 15:35:27 05/10/19 17 Physical Activity Counselling completed Coral Gleason, PT [address] [place], [address], [facility] 05/11/2016 09:47:52 05/10/19 17 97018: PT Eval Low Complexity completed Coral Gleason, PT [address] [place], [address], [facility] 05/11/2016 09:47:47 02/27/18 83 Appendectomy completed Mana Caba PA-C [address] [place], [address], [facility] 07/11/2013 15:24:52 Tubal Ligation completed Jody Wiley NP [address] [place], [address], [facility] 04/07/2015 15:10:14 Imaging Results None recorded. Procedure Notes None recorded. Medical Equipment None Reported. Allergies No known drug allergies Medications Name Sig Start Date Stop Date Status Note LastModified by Organization Details LastModified Time cyclobenz aprine 10 mg tablet 11/15 completed Not Available Not Available Not Available clonidine HCl 0.1 mg tablet TAKE 1 TABLET BY MOUTH TWICE A DAY 08/31 completed Not Available Not Available Not Available paroxetin e 10 mg tablet TAKE 1 TABLET BY MOUTH EVERY DAY 08/31 completed Not Available Not Available Not Available hydroquin one 4 % topical cream APPLY TO THE AFFECTED AREA(S) BY TOPICAL ROUTE 2 TIMES PER DAY IN [facility] AND AT BEDTIME 08/31 completed Not Available Not Available Not Available metronida zole 0.75 % (37.5 mg/5 gram) vaginal gel INSERT 1 APPLICAT ORFUL VAGINALL Y EVERY DAY FOR 7 DAYS 04/28 completed Not Available Not Available Not Available sulfameth oxazole 800 mg-trimet hoprim 160 mg tablet Take 1 tablet every 12 hours by oral route for 7 days. 11/22 completed Not Available Not Available Not Available aspirin 81 mg tablet,de layed release Take 1 tablet every day by oral route for 30 days. 2021 active Not Available Not Available Not Avai lable Imitrex 50 mg tablet Take 1 tablet PO at onset of headache . May repeat x 1 after 1 hour if needed. Max 2 tablets per 24 hours. 2013 active Patient never took Not Available Not Available Not Available nystatin- triamcino lone 100,000 unit/gram -0.1 % topical ointment USE 1 APPLICAT ION TOPICALL Y 3 TIMES A DAY, FOR 14 DAYS active Not Available Not Available No t Available lorazepam 0.5 mg tablet Take 1 tablet twice a day by oral route. active Not Available Not Available No t Available hyoscyami ne 0.125 mg disintegr ating tablet Place 1 tablet every 4 hours by sublingu al route as needed for 7 days. 03/04 completed Not Available Not Available Not Available sertralin e 25 mg tablet Take 1 tablet every day by oral route in the morning for 30 days. 05/01 completed Not Available Not Available Not Available omeprazol e 20 mg capsule,d elayed release Take 1 capsule every day by oral route. 2024 active Not Available Not Available Not Avai lable bisacodyl 5 mg tablet,de layed release 4 TABLETS ORALLY PT HAS INSTRUCT IONS 1 DAYS 08/09 completed Has appt in 05/01/24 KRB Not Available Not Available Not Available metoprolo l succinate ER 25 mg tablet,ex tended release 24 hr TAKE 1 TABLET BY MOUTH EVERYDAY AT BEDTIME active Not Available Not Available No t Available lorazepam 1 mg tablet active Not Available Not Available Not Available sertralin e 50 mg tablet TAKE 1 TABLET BY MOUTH EVERY DAY 2024 active Not Available Not Available Not Avai lable bupropion HCl XL 150 mg 24 hr tablet, extended release TAKE 1 TABLET BY MOUTH EVERY DAY 06/04 completed Not Available Not Available Not Available Prempro 0.3 mg-1.5 mg tablet TAKE 1 TABLET BY MOUTH EVERY DAY active Not Available Not Available No t Available melatonin 5 mg tablet TAKE 1-2 TABLETS BY MOUTH EVERY NIGHT AT BEDTIME active Not Available Not Available No t Available GaviLyte- G 236 gram-22.7 4 gram-6.74 gram-5.86 gram oral solution TAKE 4000ML ORALLY PT HAS INSTRUCT IONS 1 DAYS 08/09 completed Has appt in 05/01/24 KRB Not Available Not Available Not Available Vitals Date Recorded Body height Body mass index (BMI) Body weight Heart rate Oxygen saturation Oxygen saturation in Arterial blood by Pulse oximetry Systolic blood pressure Diastolic blood pressure Provider Name and Address Organization Details Last Updated DateTime 5 172.09 cm 30.5 kg/m2 29223.5 8 g 72 /min 98 % 98 % 124 mm[Hg] 76 mm[Hg] Amalia Benítez user, [facility] 5 09:39:04 Date Recorded Body height Body mass index (BMI) Body weight Provider Name and Address Organization Details Last Updated DateTime 05/01/2024 172.09 cm 28.5 kg/m2 50802.18 g Amaliaerinn Leonard r, [facility] 05/01/2024 08:08:27 Date Recorded Body height Body mass index (BMI) Body weight Heart rate Systolic blood pressure Diastolic blood pressure Provider Name and Address Organization Details Last Updated DateTime 5 172.09 cm 28.9 kg/m2 51313.9 6 g 64 /min 130 mm[Hg] 80 mm[Hg] Dot Peterson [facility] 5 10:55:19 Date Recorded Body height Body mass index (BMI) Body weight Oxygen saturation Oxygen saturation in Arterial blood by Pulse oximetry Heart rate Systolic blood pressure Diastolic blood pressure Provider Name and Address Organization Details Last Updated DateTime 5 172.09 cm 28 kg/m2 80060.4 g 98 % 98 % 74 /min 118 mm[Hg] 70 mm[Hg] Adry Turnere [facility] 5 10:32:14 Date Recorded Body height Body mass index (BMI) Body weight Heart rate Systolic blood pressure Diastolic blood pressure Provider Name and Address Organization Details Last Updated DateTime 2 172.09 cm 28.6 kg/m2 40507.9 8 g 72 /min 120 mm[Hg] 70 mm[Hg] Aviva Miranda [facility] 2 15:07:07 Social History Question Answer Notes LastModified by Organizat ion Details LastModified Time Tobacco Smoking Status Never Smoker Fátima cespedes [facility] 07/11/2013 14:45:52 What Is Your Level Of Caffeine Consumption? Occasional 1/2 Decaf Information not available 03/04/2024 How Much Tobacco Do You Chew? None Information not available 11/28/2014 What Type Of Diet Are You Following? REGULAR Information not available 07/11/2013 Which Illicit Or Recreational Drugs Have You Used? No Information not available 11/28/2014 Education 2 Year College Information not available 11/28/2014 What Is The Highest Grade Or Level Of School You Have Completed Or The Highest Degree You Have Received? [id number] Information not available 06/04/2021 Have There Been Any Changes To Your Family Or Social Situation? Yes Mother Passed Information not available 06/04/2021 Are There Any Guns Present In Your Home? No Information not available 06/04/2021 Do You Use Insect Repellent Routinely? No Information not available 06/04/2021 Live Alone Or With Others? With Others 4 Children Information not available 07/11/2013 Patient Has Health Care Proxy Signed And In Chart Yes [email or web address] Information not available 06/09/2021 Marital Status Single Informatio n not available 11/28/2014 What Was The Date Of Your Most Recent Tobacco Screening? 07/04/2024 [email or web address] Information not available 07/04/2024 How Many Children Do You Have? 4 1993, 1994, 1996, 1999 [email or web address] Information not available 01/13/2015 Are There Any Occupational Health Risks Where You Work? Yes Information not available 06/04/2021 What Is Your Relationship Status? Single Information not available 06/04/2021 Do You Use Your Seat Belt Or Car Seat Routinely? Yes Information not available 06/04/2021 Are You Sexually Active? No Information not available 06/04/2021 Smoke Alarm In Home Yes Information not available 07/11/2013 Do You Have Smoke And Carbon Monoxide Detectors In Your Home? Yes Information not available 06/04/2021 Are You Passively Exposed To Smoke? No Information not available 06/04/2021 General Stress Level Low Information not available 11/28/2014 Do You Use Sunscreen Routinely? No Information not available 07/11/2013 Sex: Female Functional Status Question Answer Note LastModified by Organizat ion Details LastModified Time Do you use any illicit or recreational drugs? No Information not available 06/04/2021 Do you or have you ever used any other forms of tobacco or nicotine? No Information not available 06/04/2021 What is your level of alcohol consumption? Occasional once a year if at all Information not available 07/11/2013 Are you currently employed? 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 Occasional Information not available 03/04/2024 Mental Status None recorded. Family History Relationship Description Onset Age of this Age Resolved Age Notes LastModified by Organization Details LastModified Time Mother Diabetes mellitus [email or web address] Not available 2015 21:45:56 Mother Anxiety [email or web address] Not available 0 05/08/2015 21:45:56 Mother Malignant neoplastic disease uterin e cancer [email or web address] Not available 06/04/2021 08:27:06 Mother Senile dementia of the Lewy body type 79 [email or web address] Not available 06/04/2021 08:27:19 Father Suicide 53 [email or web address] Not available 0 05/08/2015 21:45:56 Sister Malignant tumor of breast 49 [email or web address] Not available 06/04/2021 08:28:37 Brother Malignant neoplasm of liver [email or web address] Not available 06/04/2021 08:29:21 Medical History Condition Response Atrial Fibrillation Y Anxiety Y EYE Y MUSCULOSKELETAL Y CARDIOVASCULAR Y Abnormal Pap Y Migraine Headaches Y Gynecological History Statement/Question Response Date of LMP 03/04/2024 Obstetrics History GPAL:G 0 P 0 0 0 0 Immunizations Vaccine Type Date Status Note Provider Nam e and Address Organization Details Recorded Time Tdap 01/14/2015 completed Not Available [facility] 03/16/2019 02:20:11 Influenza, split virus, quadrivalent, PF 01/13/2015 completed Not Available [facility] 0 02:20:10 Influenza, split virus, quadrivalent, PF 04/28/2016 completed Not Available [facility] 0 02:21:34 Influenza, split virus, quadrivalent, PF 12/07/2017 completed Not Available [facility] 0 02:34:54 Influenza, split virus, trivalent, PF 03/04/2024 completed NATALIE SANTIAGOP-[address], [address], [facility] 03/04/2024 12:15:32 COVID-19, mRNA, LNP-S, PF, 100 mcg/0.5mL dose or 50 mcg/0.25mL dose 01/13/2021 [facility] 08:02:21 COVID-19, mRNA, LNP-S, PF, 100 mcg/0.5mL dose or 50 mcg/0.25mL dose 03/03/2021 [facility] 08:02:47 Past Encounters Encounter ID Performer Location Encounter Start Date Encounter Closed Date Diagnosis/Indication Diagnosis SNOMED-CT Code Diagnosis ICD10 Code Diagnosis Note [id number] Mana Caba PA-C , [facility], OFFICE [address] [place] [address] 07/11/2013 14:23:46 07/11/2013 15:26:48 Palpitations 05005076 Chest pain 77663961 Headache 14049095 Increased frequency of urination 279205942 Abdominal pain 96911985 [id number] SANTIAGO Fish, [facility] OFFICE [address] [place] [address] 6 07/19/2013 13:52:56 07/19/2013 14:16:01 Headache 55557764 Disorder of vision 26166829 [id number] SANTIAGO Fish, [facility] OFFICE [address] [place] [address] 6 08/02/2013 15:10:17 08/02/2013 15:50:26 Headache 32971402 Screening for malignant neoplasm of cervix 413871642 Dysuria 75738942 [id number] MD SHEA Bailey, [facility] OFFICE [address] [place] [address] 6 11/28/2014 16:44:25 11/28/2014 20:46:13 Abdominal pain 80221826 R10.31 Palpitations 68644845 R0 0.2 [id number] Lukasz Kern MD , [facility] OFFICE [address] [place] [address] 6 12/12/2014 10:11:54 12/12/2014 10:51:01 Abdominal pain 24398012 R10.31 Palpitations 48161299 R0 0.2 Disorder of vision 63911 002 H53.9 flashers, bilat Headache 65120697 R51 [id number] Donny Brown [facility], [address] [address] 12/17/2014 10:00:33 12/17/2014 10:49:57 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 [place] [id number] RADHA Cosby, [facility] [address] [place] [address] 6 12/18/2014 14:37:45 12/18/2014 16:51:49 Palpitations 15087962 R00.2 [id number] Yaneth Lizarraga NP , [facility] OFFICE [address] [place] [address] 6 12/19/2014 16:09:09 12/21/2014 20:12:39 Palpitations 77131158 R00.2 [id number] Lukasz Kern MD , [facility] OFF[facility] [address] [place] [address] 6 12/22/2014 08:13:04 12/22/2014 09:04:58 Palpitations 80095348 R00.2 [id number] Lukasz Kern MD , [facility] OFFICE [address] [place] [address] 6 01/13/2015 08:05:09 01/13/2015 08:56:37 Palpitations 63691787 R00.2 Tuberculos is screening 797407878 Z11.1 Active or passive immunization 723383518 Z23 Administra tion of diphtheria, pertussis, and tetanus vaccine 985852876 Z23 [id number] Jody Wiley NP FP, [facility] OFFICE [address] [place] [phone] 6 04/07/2015 14:37:50 04/07/2015 15:54:55 Adult health examination 318430134 Z00.00 see Risk Assessment and Lifestyle Change Counseling section above Counseling 763770967 Z71 .9 Anxiety disorder 4607990 06 F41.9 Right lowe r quadrant pain 917467259 R10.31 episodes for yrs 1-2x/mo relieved by advil. pain radiates to R lower back and anus. 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 Symptoms sound very spastic. Will trial hyoscyamin e for symptoms. Vaginal discharge 653440 006 N89.8 Recommenda tions as below. [id number] Lukasz Kern MD , [facility] OFFICE [address] [place] [address]40[address]44 6 02/08/2016 10:23:13 02/08/2016 11:01:39 Left lower quadrant pain 205454760 R10.32 [id number] Vicky Gonzalez NP FP, [facility] [address] [place] [id number] 6 04/28/2016 10:44:44 04/28/2016 12:08:38 Cervical radiculopathy 59415905 M54.12 Thoracic back pain 04917 8004 M54.6 Active or passive immunization 431317609 Z23 [id number] Coral Gleason, PT Physical Therapy, [address] [address] 05/09/2016 14:31:21 05/11/2016 10:27:11 Backache 614215823 M54.9 [id number] Coral Gleason, PT Physical Therapy, [address] [address] 05/12/2016 14:59:47 05/13/2016 07:34:02 Backache 385943662 M54.9 [id number] Coral Gleason PT Physical Therapy, [address] [address] 6 05/16/2016 15:22:43 05/16/2016 16:21:44 Backache 801325532 M54.9 [id number] Coral Gleason PT Physical Therapy, [address] [address] 6 05/19/2016 14:26:54 05/23/2016 07:57:44 Backache 204073064 M54.9 Thoracic o utlet syndrome 336680697 G54.0 [id number] Coral Gleason PT Physical Therapy, [address] [address] 6 05/23/2016 14:21:01 05/23/2016 15:30:30 Backache 585502597 M54.9 Thoracic o utlet syndrome 285564011 G54.0 [id number] Lukasz Kern MD FP, [facility] OFF[facility] [address] [place] [address] 6 06/01/2016 15:47:24 06/01/2016 17:01:17 Adult health examination 497377732 Z00.00 see Risk Assessment and Lifestyle Change Counseling section above Counseling 730533032 Z71 .9 Screening for malignant neoplasm of cervix 042068581 Z12.4 Anxiety disorder 9613299 06 F41.9 Palpitations 07866569 R0 0.2 [id number] Lukasz Kern MD , [facility] OFFICE [address] [place] [address]276[address]023 6 06/30/2016 15:48:26 07/01/2016 12:52:46 Anxiety 20280987 F41.9 Insomnia 481883211 G47.0 0 [id number] Coral Gleason, PT Physical Therapy, [address] [address] 08/08/2016 15:00:32 08/09/2016 07:14:04 Backache 127147944 M54.9 [id number] Andrew Navarro MD , [facility] OFFICE [address] [place] [address] 84275-448 6 09/19/2016 14:38:26 09/19/2016 15:36:15 Abdominal pain 42935889 R10.9 - etiology unclear, however, sounds spasmotic in nature- Trialing hyoscyamin e- lab work done today-f/u in one week Venereal d isease screening 831557384 Z11.3 given risk factors will screen verbal consent obtain for screening We discussed that some results may take up to 10 days to return and that results may come in at different times. We will call with results. We will not leave any details on a machine that does not identify you. safe sexual practices counseled Hyperpigme ntation of skin 17889366 L81.9 Checking LFTs [id number] Andrew Navarro MD , [facility] OFFICE [address] [place] [address]82[address] 6 09/26/2016 11:29:15 09/26/2016 11:58:49 Rectal pain 03878877 K62.89 - Resolved at this time- Referred to GI for further evaluation Hyperpigme ntation of skin 12045966 L81.9 LFTs normalCan use hydroquino neInstruct ed to avoid sun exposure Venereal d isease screening 956914400 Z11.3 No STIs, discussed importance of using protection with any partner [id number] Lukasz Kern MD , [facility] OFF[facility] [address] [place] [address] 08/31/2017 15:04:04 08/31/2017 16:14:35 Adult health examination 636273963 Z00.00 see Risk Assessment and Lifestyle Change Counseling section above Counseling 213532199 Z71 .9 Depression screening 171 543506 Z13.89 depression screening tool administer ed, entered into emr, scored and discussed, time greater than 7.5 minutes Body mass index 30+ - obesity 934900770 Z68.39 Cervical radiculopathy 28198568 M54.12 Screening mammography 24 500692 Z12.31 Venereal d isease screening 360347088 Z11.3 Palpitations 57663281 R0 0.2 Anxiety disorder 3554250 06 F41.[id number], LDN Nutrition -[facility] [address] [place] [address] 10/02/2017 14:24:29 10/02/2017 16:07:42 Obesity 658664322 E66.9 Nutrition Diagnosis: Overweight /obesity (NC 3.3) related to: physical inactivity , frequent eating out/takeou t, large portions as evidenced by pt self-repor oziel dietary recall, BMI > 30 Assessment Summary: 42 year old with hx palpitatio ns, headaches, obesity since her early 30's. She eats out or gets takeout nearly daily, and has a high intake of sodium, fats, and calories (gained another 4 lbs in past 4 weeks). She expresses strong desire to start eating healthier. Willing to do more cooking at home; however, she states that her wants to go out to eat or get takeout every day and may not be as open to more home cooking. With family hx diabetes and high intake of pasta, breads, and meats and her low level of activity and obesity, she is at high risk for developing prediabete s. No fasting glucose is noted in last few year's labs. Will keep food record and plans to measure food more, read labels, and reduce frequency of dining out (and make healthier choices when she does). Pt Instructed in: - Estimated calorie needs: 1500 kcal/day for gradual wt loss - Appropriat e portion sizes and how to measure - especially for carbohydra te foods-Heal thier choices when eating out - Importance of smaller, more frequent, & balanced meals - General healthy eating basics & plate method of eating - Importance of incorporat ing regular physical activity - Strategies for decreasing emotional/ stress eating Handouts: Thumbs Up booklet, [place]yan handouts: Eating right for a healthy weight, Eating on the Run, 20 Ways to get more fruits and vegetables , Healthy snacks for adults and teens, blank food diary pages, mobile food bank list, Healthy Incentive Plan info for extending SNAP benefits, food pantry list for [facility], 1500 calorie sample daily meal plan [id number] Lukasz Kern MD , [facility] OFFICE [address] [place] [address] 6 12/07/2017 15:45:39 12/08/2017 08:57:31 Active or passive immunization 098889609 Z23 Anxiety disorder F41.9 Major depr essive disorder 833298259 F32.9 Weight gain 0292071 R63. 5 Body mass index 30+ - obesity 543996975 Z68.39 [id number] Lukasz Kern MD , [facility] OFF[facility] [address] [place] [address] 06/04/2021 07:49:24 06/04/2021 08:46:23 Adult health examination 827733964 Z00.00 see Risk Assessment and Lifestyle Change Counseling section above Counseling 794550789 Z71 .9 including cardiovasc ular risk reduction counseling Depression screening 171 624003 Z13.31 depression screening tool administer ed, entered into emr, scored and discussed, time greater than 7.5 minutes Screening for alcohol abuse 881371185 Z13.39 Anxiety disorder 06 F41.9 Palpitations 48530834 R0 0.2 Irritable bowel syndrome 12174139 K58.9 Generalize d anxiety disorder 94748476 F41.1 Paroxysmal atrial fibrillation 245027742 I48.0 2018 dx Cardiology Vaginal discharge 352286 006 N89.8 Low back pain 229846066 M54.50 [id number] Coral Gleason, PT Physical Therapy, [address] [address] 07/21/2021 10:41:32 08/04/2021 15:32:49 Backache [id number] M54.9 [id number] Coral Gleason, PT Physical Therapy, [address] [address] 08/04/2021 10:45:02 08/04/2021 11:22:27 Backache [id number] M54.9 [id number] Coral Gleason, PT Physical Therapy, [address] [address] 08/23/2021 10:05:39 08/23/2021 10:59:02 Backache [id number] M54.9 [id number] Lukasz Kern MD FP, [facility], OFFICE [address] [place] [address] 08/27/2021 13:15:47 08/27/2021 13:55:01 Abdominal pain [id number] R10.9 [id number] Coral Gleason, PT Physical Therapy, [address] [address] 09/01/2021 14:25:33 09/01/2021 15:14:53 Backache [id number] M54.9 [id number] Coral Gleason, PT Physical Therapy, [address] [address] 09/07/2021 15:36:53 09/08/2021 07:33:52 Backache [id number] M54.9 [id number] Coral Gleason, PT Physical Therapy, [address] [address] 09/21/2021 11:23:13 09/21/2021 12:00:20 Backache [id number] M54.9 [id number] Ric Hillman MD FP, [facility], OFFICE [address] [place] [phone] 03/04/2024 09:06:07 03/04/2024 10:32:07 Adult health examination [id number] Z00.00 -Stable, generally well 48 yo F-Personal and family hx of cardiac events, reassess general health profile since last visit for new baseline Depression screening 171 [id number] Z13.31 -depressio n screening tool administer ed-Experie ncing shift in physical health/men opause has been difficult for patient, along with new stage of life-Looki ng for more therapeuti c support in navigating these life changes for relief of anxiety, depressive symptoms and unprovoked irritabili ty-Referra l to counseling /behaviora l health Screening for alcohol abuse [id number] Z13.39 Alcohol use screening tool administer ed Screening for malignant neoplasm of colon 384533507 Z12.11 Referral for a DIRECT booked colonoscop y. This patient is a healthy ASA Class 1 or 2 patient (only mild systemic disease), or a STABLE, well controlled insulin dependent diabetic. They do not have serious cardiac disease ie OH/angiopl asty within 1 year, symptomati c CHF; renal failure with CKD 4 or 5; take Coumadin, Plavix, Aggrenox, etc. Screening for malignant neoplasm of cervix 220077997 Z12.4 -Pap to be reschedule d after current menses cycle given hx of abnormal pap Screening mammography 24 357208 Z12.31 -No concerns at this time-Scree penny mammo to be scheduled Active or passive immunization [id number] Z23 -Flu vax administer ed in-office today Palpitations 57041022 R0 0.2 -Experienc ed alongside anxious thoughts/s ymptoms-Re ports taking metoprolol as directed-S ee parox afib + anxiety Paroxysmal atrial fibrillation 513222873 I48.0 -Regular on exam today and remainder of physical exam unremarkab le, VSS, patient in no distress during exam-Recen hospital ER visit for palpitatio ns in 01/2024-On metoprolol 25mg ER every day; recommend continuing , Rx sent to refill-Str essed the importance of making sure she takes every day for relief of symptoms and overall health/saf ety-Taking ASA81 for antiplatel et-Re-esta blish care with cardiology at [facility] whom patient has seen in past for further evaluation and assessment /recommend ations of medication s-Believe some of the breakthrou gh palpitatio ns are likely related to patient's anxiety/Se rtraline regimen, see above Perimenopausal state [id number] 68122 Z78.0 -Currently cycling, though irregular now (previousl y very regular)-S ymptoms of perimenopa use per HPI-Discus sed drawbacks of checking hormones, but given patient concern, draw FSH/LH-WIRE TURNING MACHINE OPERATOR referral sent per patient request to discuss gynecologi cristina changes associated with menopause, IUD insertions and appropriat eness Anxiety disorder 9869615 06 F41.9 -Mood changes over last few months, per HPI-No red flags or threat to self/other s-Previous sertraline Rx from in [place] that patient was taking PRN-Discus sed reasons to, and benefits of, taking the medication consistent ly-Follow- up in 1 month to discuss effectiven ess of sertraline 25mg every day on mood, anxiety and associated palpitatio ns (see below) Carpal abigail pete syndrome 08092643 G56.01 -Thumb, index and middle finger with paresthesi as only at night-Hx of working with her hands-Low threshold for carpal tunnel etiology-R ecommend using wrist splint at night to alleviate symptoms, explained to patient-F/ u if symptoms worsen Hyperlipid emia screening 481042180 Z13.220 [id number] Ric Hillman MD , [facility], OFFICE [address] [place] [address] 05/01/2024 08:04:04 05/02/2024 08:45:05 Screening mammography [id number] Z12.31 Has appt on 07/31/24 Screening for malignant neoplasm of cervix 959212608 Z12.4 Getting done with WIRE TURNING MACHINE OPERATOR on 05/24/24. Acute depression 2750541 08 F32.A -Treatment plan as above. Perimenopausal state [id number] 01567 Z78.0 Experienci ng significan t mood changes, fatigue, and anxiety. Labs and symptoms support transition into menopause. -Increase Sertraline from 25mg to 50mg daily to help elevate mood and reduce anxiety. Patient has meds at home and will begin taking two 25mg pills until refill needed for a total of 50mg once daily. -Add daily Vitamin D (dose: 600 IU once per day) and Calcium citrate (dose: 1200 mg once per day) supplement s. -Plan to follow up in one month after WIRE TURNING MACHINE OPERATOR appointmen t. [id number] Lukasz Kern MD , [facility], OFFICE [address] [place] [address] 07/04/2024 10:46:03 07/04/2024 13:39:42 Screening for malignant neoplasm of colon 487776527 Z12.11 Appt reports as already being scheduled. Screening for malignant neoplasm of cervix 514764563 Z12.4 has appt with event sales assistant in July Screening mammography 24 894986 Z12.31 mammo scheduled 07/31/24 Exposure t o potentially harmful entity 946706778 Z20.9 Left flank pain 96599348 9 R10.9 CVA tenderness not evident on exam but given patient's extreme concern, recommend UA for review. Mass of neck 812827549 R 22.1 Suspicious for cystic lesion along L sternoclei domastoid. No red flags on exam, but small 3mm, mobile and well-circu mscribed lump noted. No skin changes. US for further eval. No issues with swallowing . 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 :) Keep taking sertraline as prescribed and call with any questions. GIANCARLO-7: 7PHQ-9: 6 [id number] Ric Hillman MD , [facility], OFFICE [address] [place] [address] 08/09/2024 10:17:26 08/09/2024 11:00:05 Anxiety disorder 805255409 F41.9 GIANCARLO 8Moderatel y controlled , still taking sertaline and following with therapy.No concerns on exam today. Stress and anxiety may contribute to gastrointe stinal symptoms. Discussed anxiety's impact on digestion. - Encourage continuati on of sertraline .- Support participat ion in therapy and group sessions.- Advise on [facility] paperwork for work coverage. Gastroesop hageal reflux disease 746309020 K21.9 Burning throat sensation likely from acid reflux, exacerbate d by stress. Normal ultrasound and labs. Increased gastric acid secretion due to stress may cause esophageal irritation .- Prescribe omeprazole once daily for 14 days.- Advise to report any changes or worsening of symptoms. Menopausal symptom 94823 002 N95.1 Experiencgarfield briceno menopausal symptoms with anxiety, irritation , irregular menses. Stopped hormone therapy due to concern of side effects. Interested in natural estrogen support.- Refer to Dr. Dupont for further management .- Discuss potential natural remedies, such as purple yams, black cohosh, for estrogen support but discussed the lack of research/e fficacy of these remedies. Health Concerns Section Related Observation LastModified by Organization Detai ls LastModified Time None Recorded Concern Status LastModified by Organization Details LastModified Time None Recorded Advance Directives Directive None Recorded Payers Insurance Date Sequence Insurance Name Policy Number Policy Kilpatrick Covered Member ID Kilpatrick Member ID Guarantor Name 03/07/2024 1 [place] PRIOR [place] 2022 - [facility] (MEDICAID) Jessica hCilel [id number] Jessica Chilel 03/07/2024 1 [employer] (POS II) [id number] Jessica Chilel [id number] Jessica Chilel 03/07/2024 1 [place] [facility] Jessica Chilel [id number] Jessica Chilel 03/07/2024 1 [place] [facility] Jessica Chilel [id number] Jessica Chilel 08/12/2024 2 [facility] (MEDICAID HMO) [id number] Jessica Chilel [id number] Jessica Chilel 08/12/2024 1 [place] [id number] Jessica Chilel [id number] Jessica Chilel Notes Date Note Type Note Provider Name and Address Organization Details Recorded Time 09/21/2021 text/html I have developed left elbow discomfort. It is aggravated by lifting. The back is still feeling better, But it can feel stiff when moving. Coral Gleason, PT [address] [facility], [place], [address], [facility] 09/21/2021 11:50:28 03/04/2024 text/html Patient leann briceno back to clinic from a few years ago to re-establish care and to get back on track. Main causes of concern related to: aging/menopausal symptoms, mood disturbances and palpitations as described below. Also looking to receive all necessary screening. States she is currently menstruating today. Aging/Perimenopause:-N ormally, body has been like clockwork with 28 day cycles-July 2023, had 3 periods in the month, sometimes lasting up to 10 days-Associated with painful cramping and bloating, which was not normal for her-Hasn't currently missed any periods, but her cycles are not regular anymore and normal cycle symptoms are different-Does not see a WIRE TURNING MACHINE OPERATOR but interested in beginning care with one-Currently sexually active, no issues with vaginal dryness or discharge changes-Libido not affected, if anything, has increased-Experiences night sweats/hot flashes Mood Changes:-At baseline, active and happy and engaging-Has felt down, irritable, angry for nothing , less-interested in things that once brought her loren and knows this isn't normal for her-Reports that daughter has noticed-Noticed changes with changes in period cycles-Was prescribed Sertraline 25mg from previous doctor in [place] but does not take this medication consistently (takes it as PRN)-Open to assistance with behavioral health Palpitations:-Recent ER visit in 01/2024 for palpitations-Hx of parox afib-Was prescribed metoprolol 25mg ER; reports taking consistently-Takes baby ASA every day-Denies CP, SOB, changes in vision but feels palpitations at nighttime which are bothersome Prevention:-Would like flu shot today bz-aksryz-Eiaox to schedule screening mammo-Wants to schedule colonoscopy-Would like to reschedule for pap after current menses Kat Barahona, DNP, ELEVATOR SERVICE MECHANIC-[address], [phone], [facility] 03/07/2024 12:56:03 05/01/2024 text/html 05/01/24- Dusty merrill s a 49 year old female who presents with medication management and follow-up of perimenopausal symptoms. She is experiencing significant perimenopausal symptoms, including irregular menstrual cycles with both long and short periods, mood fluctuations, and increased anxiety. She describes feeling 'heavy' and 'empty', with a sense of underlying depression and anxiety exacerbated by hormonal changes. She recently had to call a crisis line and now has 3 appointments with a therapist in [place], [place] scheduled that she is looking forward to. She has not yet met with a rivet heater gas but has an appointment scheduled for the end of this month. She has been taking sertraline at a dose of 25 mg daily, although she has missed some doses recently. The current dose is not effectively managing her symptoms, which include fatigue, feeling down, and anxiety. No plans to harm herself or others, but she acknowledges feeling significantly down - which is the most bothersome symptom for her at the moment. A recent Holter monitor test for cardiac evaluation showed stable results, and her thyroid function tests were normal. Blood tests indicate she is moving into menopause, which aligns with her symptoms. 02/2024: Patient presenting back to clinic from a few years ago to re-establish care and to get back on track. Main causes of concern related to: aging/menopausal symptoms, mood disturbances and palpitations as described below. Also looking to receive all necessary screening. States she is currently menstruating today. Aging/Perimenopause:-N tannaly, body has been like clockwork with 28 day cycles-July 2023, had 3 periods in the month, sometimes lasting up to 10 days-Associated with painful cramping and bloating, which was not normal for her-Hasn't currently missed any periods, but her cycles are not regular anymore and normal cycle symptoms are different-Does not see a WIRE TURNING MACHINE OPERATOR but interested in beginning care with one-Currently sexually active, no issues with vaginal dryness or discharge changes-Libido not affected, if anything, has increased-Experiences night sweats/hot flashes Mood Changes:-At baseline, active and happy and engaging-Has felt down, irritable, angry for nothing , less-interested in things that once brought her loren and knows this isn't normal for her-Reports that daughter has noticed-Noticed changes with changes in period cycles-Was prescribed Sertraline 25mg from previous doctor in [place] but does not take this medication consistently (takes it as PRN)-Open to assistance with behavioral health Palpitations:-Recent ER visit in 01/2024 for palpitations-Hx of parox afib-Was prescribed metoprolol 25mg ER; reports taking consistently-Takes baby ASA every day-Denies CP, SOB, changes in vision but feels palpitations at nighttime which are bothersome Prevention:-Would like flu shot today ts-dhvxof-Oovxd to schedule screening mammo-Wants to schedule colonoscopy-Would like to reschedule for pap after current menses Kat Barahona, DNP, ELEVATOR SERVICE MECHANIC- [address] [place], [phone], [place] [facility] 05/02/2024 08:13:38 07/04/2024 text/html 07/04/24: Jessica re turns to discuss her mental health and gynecological evaluations.She has a cyst on her breast, which was evaluated by her rivet heater gas two weeks ago. She is concerned about the possibility of it being related to a fungal infection. She has a history of a similar cystic condition in her breast, which was previously evaluated. The workup is currently under care with her WIRE TURNING MACHINE OPERATOR.She describes experiencing flank pain on the left side, which she associates with her kidney. The pain began a couple of days ago and is described as muscular. It was significant enough to cause her to miss work for a day. She also mentions having pain in her bones and muscles, which causes her anxiety about potential serious conditions. No urinary pain reported.She reports a specific pain in her left jaw/sternocleidomastoi d muscle, described as similar to having a pimple under her skin, which has recurred. The pain is localized and not associated with her throat. She also mentions a cystic feeling in her neck, above the thyroid, which she associates with a previous cystic condition.She has been experiencing anxiety about her health, particularly concerning sexually transmitted infections. She requests testing for HIV, chlamydia, and gonorrhea, and expresses concern about potential transmission risks. She also mentions having a period currently. 05/01/24- Jessica is a 49 year old female who presents with medication management and follow-up of perimenopausal symptoms. She is experiencing significant perimenopausal symptoms, including irregular menstrual cycles with both long and short periods, mood fluctuations, and increased anxiety. She describes feeling 'heavy' and 'empty', with a sense of underlying depression and anxiety exacerbated by hormonal changes. She recently had to call a crisis line and now has 3 appointments with a therapist in [place], [place] scheduled that she is looking forward to. She has not yet met with a rivet heater gas but has an appointment scheduled for the end of this month. She has been taking sertraline at a dose of 25 mg daily, although she has missed some doses recently. The current dose is not effectively managing her symptoms, which include fatigue, feeling down, and anxiety. No plans to harm herself or others, but she acknowledges feeling significantly down - which is the most bothersome symptom for her at the moment. A recent Holter monitor test for cardiac evaluation showed stable results, and her thyroid function tests were normal. Blood tests indicate she is moving into menopause, which aligns with her symptoms. 02/2024: Patient presenting back to clinic from a few years ago to re-establish care and to get back on track. Main causes of concern related to: aging/menopausal symptoms, mood disturbances and palpitations as described below. Also looking to receive all necessary screening. States she is currently menstruating today. Aging/Perimenopause:-N ormally, body has been like clockwork with 28 day cycles-July 2023, had 3 periods in the month, sometimes lasting up to 10 days-Associated with painful cramping and bloating, which was not normal for her-Hasn't currently missed any periods, but her cycles are not regular anymore and normal cycle symptoms are different-Does not see a WIRE TURNING MACHINE OPERATOR but interested in beginning care with one-Currently sexually active, no issues with vaginal dryness or discharge changes-Libido not affected, if anything, has increased-Experiences night sweats/hot flashes Mood Changes:-At baseline, active and happy and engaging-Has felt down, irritable, angry for nothing , less-interested in things that once brought her loren and knows this isn't normal for her-Reports that daughter has noticed-Noticed changes with changes in period cycles-Was prescribed Sertraline 25mg from previous doctor in [place] but does not take this medication consistently (takes it as PRN)-Open to assistance with behavioral health Palpitations:-Recent ER visit in 01/2024 for palpitations-Hx of parox afib-Was prescribed metoprolol 25mg ER; reports taking consistently-Takes baby ASA every day-Denies CP, SOB, changes in vision but feels palpitations at nighttime which are bothersome Prevention:-Would like flu shot today ap-nooupr-Lpsxj to schedule screening mammo-Wants to schedule colonoscopy-Would like to reschedule for pap after current menses LALA SANTIAGO-BC [address] [place], [phone], [facility] 07/04/2024 12:00:36 08/09/2024 text/html 08/09/24: Jessica presents with throat pain and gastrointestinal symptoms. She experiences a burning sensation in her throat, which she associates with a possible viral infection. The pain is localized to the throat and sometimes affects her tongue, making it difficult to talk. No sensation of a lump in her throat or jaw pain. She visited the emergency department where she was tested for COVID-19 and other conditions, all of which returned normal results. An ultrasound of her neck and thyroid was performed with normal results previously. She has a history of vomiting a week ago and currently experiences discomfort in her stomach, particularly after eating. The pain is similar to a burning sensation and affects her ability to eat, leading to weight loss. She has been consuming only coffee and toast in the morning due to her symptoms. No chest pain or sensation of throat tightening. She has a history of heartburn and suspects it might be related to her current symptoms. She has not tried any medications for acid reflux in the past. She has stopped taking hormone therapy for menopause, suspecting it might be contributing to her symptoms. She continues to take sertraline, which she finds helpful for her mental health. She experiences leg pain and changes in her menstrual cycle, with her period stopping recently after having it twice in June. She has a family history of cancer, which causes her concern about her symptoms. She is currently undergoing therapy and is considering [facility] to manage her work schedule with necessary therapy sessions. 07/04/24: Jessica returns to discuss her mental health and gynecological evaluations.She has a cyst on her breast, which was evaluated by her rivet heater gas two weeks ago. She is concerned about the possibility of it being related to a fungal infection. She has a history of a similar cystic condition in her breast, which was previously evaluated. The workup is currently under care with her WIRE TURNING MACHINE OPERATOR.She describes experiencing flank pain on the left side, which she associates with her kidney. The pain began a couple of days ago and is described as muscular. It was significant enough to cause her to miss work for a day. She also mentions having pain in her bones and muscles, which causes her anxiety about potential serious conditions. No urinary pain reported.She reports a specific pain in her left jaw/sternocleidomastoi d muscle, described as similar to having a pimple under her skin, which has recurred. The pain is localized and not associated with her throat. She also mentions a cystic feeling in her neck, above the thyroid, which she associates with a previous cystic condition.She has been experiencing anxiety about her health, particularly concerning sexually transmitted infections. She requests testing for HIV, chlamydia, and gonorrhea, and expresses concern about potential transmission risks. She also mentions having a period currently. 05/01/24- Jessica is a 49 year old female who presents with medication management and follow-up of perimenopausal symptoms. She is experiencing significant perimenopausal symptoms, including irregular menstrual cycles with both long and short periods, mood fluctuations, and increased anxiety. She describes feeling 'heavy' and 'empty', with a sense of underlying depression and anxiety exacerbated by hormonal changes. She recently had to call a crisis line and now has 3 appointments with a therapist in [place], [place] scheduled that she is looking forward to. She has not yet met with a rivet heater gas but has an appointment scheduled for the end of this month. She has been taking sertraline at a dose of 25 mg daily, although she has missed some doses recently. The current dose is not effectively managing her symptoms, which include fatigue, feeling down, and anxiety. No plans to harm herself or others, but she acknowledges feeling significantly down - which is the most bothersome symptom for her at the moment. A recent Holter monitor test for cardiac evaluation showed stable results, and her thyroid function tests were normal. Blood tests indicate she is moving into menopause, which aligns with her symptoms. 02/2024: Patient presenting back to clinic from a few years ago to re-establish care and to get back on track. Main causes of concern related to: aging/menopausal symptoms, mood disturbances and palpitations as described below. Also looking to receive all necessary screening. States she is currently menstruating today. Aging/Perimenopause:-N ormally, body has been like clockwork with 28 day cycles-July 2023, had 3 periods in the month, sometimes lasting up to 10 days-Associated with painful cramping and bloating, which was not normal for her-Hasn't currently missed any periods, but her cycles are not regular anymore and normal cycle symptoms are different-Does not see a WIRE TURNING MACHINE OPERATOR but interested in beginning care with one-Currently sexually active, no issues with vaginal dryness or discharge changes-Libido not affected, if anything, has increased-Experiences night sweats/hot flashes Mood Changes:-At baseline, active and happy and engaging-Has felt down, irritable, angry for nothing , less-interested in things that once brought her loren and knows this isn't normal for her-Reports that daughter has noticed-Noticed changes with changes in period cycles-Was prescribed Sertraline 25mg from previous doctor in [place] but does not take this medication consistently (takes it as PRN)-Open to assistance with behavioral health Palpitations:-Recent ER visit in 01/2024 for palpitations-Hx of parox afib-Was prescribed metoprolol 25mg ER; reports taking consistently-Takes baby ASA every day-Denies CP, SOB, changes in vision but feels palpitations at nighttime which are bothersome Prevention:-Would like flu shot today hv-okqoap-Bxucv to schedule screening mammo-Wants to schedule colonoscopy-Would like to reschedule for pap after current menses LALA SANTIAGO-[address], [place], [id number], [facility] [place] 08/09/2024 11:11:59 OBGyn Episode No OBEpisode recorded.
[2024-08-25 16:29] VITALS: BP 121/68; PULSE 90; RESP 16; TEMP 37.1; O2SAT 98
== END 2024-08-25 16:29 | disposition home or self-care (01) ==
PROVIDERS: Physician Assistant Medical; Emergency Provider Emergency Medicine
DX: U07.1 COVID-19 (principal); R05.9 Cough, unspecified; J02.9 Acute pharyngitis, unspecified; R51.9 Headache, unspecified; M79.10 Myalgia, unspecified site; R53.83 Other fatigue
CPT/HCPCS: 0241U; 87651; 99282; 99283